=== PATIENT | male | born 1955 | race Caucasian/White ===

== ENCOUNTER 2017-06-21 15:15 | Inpatient (IN) ==
--- NOTE | 2017-06-21 15:39 | Emergency Department Note ---
Disposition Clinical Impression: Pneumonia Qualifiers: Pneumonia type: due to unspecified organism Laterality: right Lung location: unspecified part of lung Qualified Code(s): J18.9 - Pneumonia, unspecified organism Disposition: Admitted As Inpatient Condition: Fair Forms: ED Satisfaction Letter, Work/School Release Time of Disposition: 18:20 SOB HPI - General Chief Complaint: ED General Medical Stated Complaint: Abnormal chest xray,cough Time Seen by Provider: 06/21/17 15:19 Source: patient Mode of arrival: ambulatory Limitations: no limitations Nursing Notes Reviewed: Yes Vital Signs Reviewed: Yes - History of Present Illness 61-year-old who had the flu couple weeks ago then developed a cough and pneumonia was started on antibiotics comes in today with worsening symptoms. Chest x-ray done outside facility shows a large right sided lesion concerning for pneumonia versus mass is a cavitary lesion. In the differential would be tuberculosis although the onset would seem to be a post-influenza pneumonia. Pt Subjective Complaint: shortness of breath, cough Onset (ago): day(s) Context: recent illness Severity: moderate Consistency/Duration: constant Improves with: nothing Worsens with: exertion Known history of: COPD Associated symptoms: Reports: fever, cough Treatment prior to arrival: other (Antibiotics) Cough Frequency: Continuous - Related Data Home Medications Medication Instructions Recorded Confirmed Aspirin 81 mg PO DAILY 01/27/16 01/27/16 Calcium Carbonate [Calcium] 600 mg PO DAILY 01/27/16 01/27/16 Ferrous Sulfate 325 mg PO DAILY 01/27/16 01/27/16 Furosemide [Lasix] 20 mg PO DAILY 01/27/16 01/27/16 Insulin ASPART [NovoLOG] 6 - 8 unit SQ BID 01/27/16 01/27/16 Insulin Glargine,Hum.rec.anlog 66 unit SQ HS 01/27/16 01/27/16 [Lantus Solostar] Lisinopril [Zestril] 40 mg PO QPM 01/27/16 01/27/16 Spironolactone [Aldactone] 25 mg PO DAILY 01/27/16 01/27/16 metFORMIN [Glucophage] 850 mg PO TID 01/27/16 01/27/16 Previous Rx's Medication Instructions Recorded Clindamycin [Cleocin] 150 mg PO Q6HR #8 capsule 01/27/16 OxyCODONE Immed Rel [Roxicodone 5 5 - 10 mg PO Q8HR PRN #30 tablet 01/27/16 MG] Atorvastatin [Lipitor] 80 mg PO HS 30 Days tablet 01/30/16 Metoprolol XL (24 HR) Succ [Toprol 25 mg PO DAILY #30 tab.er.24h 01/30/16 Xl] Ticagrelor [Brilinta] 90 mg PO BID #60 tablet 01/30/16 Allergies Allergy/AdvReac Type Severity Reaction Status Date / Time Penicillins AdvReac Rash Verified 06/21/17 16:42 Constitutional: Denies: fever, chills, weakness, weight change Eyes: Denies: eye pain, eye discharge, vision change ENT ED: Denies: ear pain, throat pain, dental pain, hearing loss, epistaxis, congestion, dysphagia Cardiovascular: Denies: chest pain, palpitations, dyspnea on exertion, edema, syncope Respiratory: Reports: cough, dyspnea. Denies: wheezes, hemoptysis, stridor Gastrointestinal: Denies: abdominal pain, nausea, vomiting, diarrhea, constipation, hematemesis, melena, hematochezia Genitourinary: Denies: urgency, dysuria, frequency, hematuria Musculoskeletal: Denies: back pain, neck pain, arthralgia, myalgia Integumentary: Denies: rash, abrasion, lesions Neurological: Denies: headache, weakness, numbness, paresthesias, confusion, abnormal gait, vertigo Psychiatric: Denies: anxiety, depression, suicidal thoughts, homicidal thoughts , auditory hallucinations, visual hallucinations Endocrine: Denies: fatigue Hematological/Lymphatic: Denies: easy bleeding, easy bruising Allergic/Immunologic: Denies: facial swelling, urticaria Past Medical History - Past Medical History Medical history: Reports: CHF, diabetes, hyperlipidemia, hypertension, myocardial infarction, other Surgical history: Reports: angioplasty/stent, pacemaker/AICD Psychiatric history: Reports: no psych history - Social History Smoking Status: Former smoker Smokeless Tobacco Status: No Alcohol use: Reports: occasionally Drug use: Reports: none Physical Exam - General Limitations: no limitations General appearance: alert, in no apparent distress - Head Head exam: atraumatic, normocephalic, normal inspection - Eye Eye exam: Present: normal appearance, PERRL, EOMI - ENT ENT exam: normal exam, normal oropharynx, mucous membranes moist - Neck Neck exam: Present: normal inspection, full ROM, trachea midline - Chest Chest inspection: Present: normal inspection, symmetric chest wall rise - Respiratory Respiratory exam: Present: wheezes, prolonged expiratory phase (Occasional) - Cardiovascular Cardiovascular exam: Present: regular rate, normal rhythm, normal heart sounds - Abdominal Exam Abdominal exam: Present: soft, Non-Tender. Absent: tenderness, distention, guarding, rebound, rigidity - Extremities Exam Extremities exam: Present: normal inspection, full ROM. Absent: tenderness, pedal edema - Expanded Lower Extremity Exam Neurovascular/Tendon exam: Absent: motor deficit, sensory deficit, tendon deficit Gait: observed and normal - Back Exam Back exam: Present: normal inspection, full ROM. Absent: tenderness - Neurological Exam Neurological exam: Present: alert, oriented X3 - Psychiatric Psychiatric exam: Present: normal affect, normal mood - Skin Skin exam: Present: warm, dry, intact, normal color Course - Reevaluation(s) Reevaluation #1: 61-year-old male who comes in with a cough congestion. Patient had influenza couple weeks ago. Was diagnosed with a pneumonia and comes in with worsening symptoms. Had a chest x-ray that shows a cavitary pneumonia multifocal. Onset following influenza and findings of rapid development unlikely to be tuberculosis but we will keep him in a negative pressure room. Time: 18:19 - Consultations Consultation #1: Discussed with Dr. Cooper, admit. Time: 18:18 Vital Signs Temperature 98.2 F 06/21/17 15:23 Pulse Rate 99 06/21/17 15:23 Respiratory Rate 20 06/21/17 15:23 Blood Pressure 125/94 06/21/17 15:23 O2 Sat by Pulse Oximetry 99 06/21/17 15:23 Temperature 98.2 F 06/21/17 15:23 Pulse Rate 84 06/21/17 17:00 Respiratory Rate 20 06/21/17 17:00 Blood Pressure 115/72 06/21/17 17:00 O2 Sat by Pulse Oximetry 99 06/21/17 17:00 Oxygen Delivery Oxygen Delivery Room Air Shortness of Breath/Dyspnea - Lab Data Lab results reviewed: Yes I reviewed the patient's lab results. Result diagrams: 06/21/17 15:52 06/21/17 15:52 Lab Results 06/21/17 06/21/17 06/21/17 Range/Units 15:52 15:52 15:52 WBC 22.4 H (4.3-11.1) K/mcL RBC 3.91 L (4.19-5.50) M/mcL Hgb 10.6 L (12.9-16.9) g/dL Hct 32.2 L (37.5-50.1) % MCV 82.4 L (83.0-100.0) fL MCH 27.1 L (28.0-33.3) pg MCHC 32.9 (31.6-35.5) g/dL RDW 13.4 (11.5-14.5) % Plt Count 396 (140-400) K/mcL MPV 9.7 (9.4-12.4) fL Immature Gran % 1.1 (0-4) % Seg Neutrophils % 83.3 % Lymphocytes % 7.2 % Monocytes % 8.1 % Eosinophils % 0.2 % Basophils % 0.1 % Neutrophils # 18.6 H (1.6-8.9) K/mcL Lymphocytes # 1.6 (0.6-4.6) K/mcL Monocytes # 1.8 H (0.0-1.3) K/mcL Eosinophils # 0.1 (0.0-0.6) K/mcL Basophils # 0.0 (0.0-0.2) K/mcL Sodium 124 L (136-145) mEq/L Potassium 4.4 (3.5-5.1) mEq/L Chloride 94 L (98-107) mEq/L Carbon Dioxide 22 L (23-29) mEq/L BUN 23 (8-23) mg/dL Creatinine 1.03 (0.70-1.30) mg/dL Est GFR ( Amer) > 60 (> 60) Est GFR (Non-Af Amer) > 60 (> 60) BUN/Creatinine Ratio 22 (6-26) Glucose 591 H* (70-105) mg/dL Calculated Osmolality 289 (280-300) Lactic Acid 1.9 (0.5-2.2) mmol/L Calcium 8.4 L (8.6-10.3) mg/dL Troponin I (< 0.04) ng/mL 06/21/17 Range/Units 15:52 WBC (4.3-11.1) K/mcL RBC (4.19-5.50) M/mcL Hgb (12.9-16.9) g/dL Hct (37.5-50.1) % MCV (83.0-100.0) fL MCH (28.0-33.3) pg MCHC (31.6-35.5) g/dL RDW (11.5-14.5) % Plt Count (140-400) K/mcL MPV (9.4-12.4) fL Immature Gran % (0-4) % Seg Neutrophils % % Lymphocytes % % Monocytes % % Eosinophils % % Basophils % % Neutrophils # (1.6-8.9) K/mcL Lymphocytes # (0.6-4.6) K/mcL Monocytes # (0.0-1.3) K/mcL Eosinophils # (0.0-0.6) K/mcL Basophils # (0.0-0.2) K/mcL Sodium (136-145) mEq/L Potassium (3.5-5.1) mEq/L Chloride (98-107) mEq/L Carbon Dioxide (23-29) mEq/L BUN (8-23) mg/dL Creatinine (0.70-1.30) mg/dL Est GFR ( Amer) (> 60) Est GFR (Non-Af Amer) (> 60) BUN/Creatinine Ratio (6-26) Glucose (70-105) mg/dL Calculated Osmolality (280-300) Lactic Acid (0.5-2.2) mmol/L Calcium (8.6-10.3) mg/dL Troponin I < 0.03 (< 0.04) ng/mL - Radiology Data Radiology results reviewed: Yes I reviewed the patient's radiology results. Chest CTA 06/21/17 15:34 IMPRESSION: Large area of consolidation in the anterior aspect of the right upper lobe extending into the right middle lobe measuring 6.4 x 10.5 x 6.1 cm with internal air-fluid level and areas of cavitation. This most likely represents a large cavitary pneumonia especially given its rapid development/worsening since 06/08/[address] Underlying mass cannot be completely excluded and follow-up to resolution is recommended. Additional cavitary lesions measuring 16 x 11 mm and 13 x 12 mm in the left upper lobe also supporting a diagnosis of multifocal cavitary pneumonia. The left upper lobe lesions do not demonstrate air-fluid levels or significant consolidation although there is mild inflammatory ground-glass surrounding catheter adhesions. Trace pericardial effusion and right pleural effusion. Right mediastinal and subcarinal lymphadenopathy that may represent reactive lymphadenopathy. No evidence of pulmonary embolus. D/ / Nitin Powers MD / Nitin Powers MD Interpreting Provider: Nitin Powers MD
[2017-06-21 16:01] LABS: Basophils % 0.1 %; Eosinophils # 0.1 K/mcL (0.0-0.6); Eosinophils % 0.2 %; Hematocrit 32.2 % (37.5-50.1); Hemoglobin 10.6 g/dL (12.9-16.9); Immature Granulocytes % 1.1 % (0-4); Lymphocytes # 1.6 K/mcL (0.6-4.6); Lymphocytes % 7.2 %; Mean Corpuscular HGB Conc 32.9 g/dL (31.6-35.5); Mean Corpuscular Hemoglobin 27.1 pg (28.0-33.3); Mean Corpuscular Volume 82.4 fL (83.0-100.0); Mean Platelet Volume 9.7 fL (9.4-12.4); Monocytes # 1.8 K/mcL (0.0-1.3); Monocytes % 8.1 %; Neutrophils # 18.6 K/mcL (1.6-8.9); Platelet Count 396 K/mcL (140-400); Red Blood Count 3.91 M/mcL (4.19-5.50); Red Cell Distribution Width 13.4 % (11.5-14.5); Segmented Neutrophils % 83.3 %
[2017-06-21 16:23] LABS: BUN/Creatinine Ratio 22 (6-26); Blood Urea Nitrogen 23 mg/dL (8-23); Calcium 8.4 mg/dL (8.6-10.3); Carbon Dioxide 22 mEq/L (23-29); Chloride 94 mEq/L (98-107); Glucose 591 mg/dL (70-105); Osmolality,Calculated 289 (280-300); Potassium 4.4 mEq/L (3.5-5.1); Sodium 124 mEq/L (136-145); eGFR For African Americans > 60 (> 60); eGFR For Non-African Americans > 60 (> 60)
[2017-06-21] MEDS ORDERED: Insulin Human Regular 10 UNIT in 0.9 % Sodium Chloride 10 ML IV ONE (16:28)
[2017-06-21] MEDS ORDERED: Vancomycin 1,000 MG in D5% in Water 250 ML IVPB ONE (17:41)
[2017-06-21] MEDS ORDERED: Levofloxacin 750 MG/150 ML 750 MG/150 ML BAG IVPB ONE (17:41)
[2017-06-21] MEDS ORDERED: Naloxone 0.4 MG/ML INJ IVP PRN (19:54)
[2017-06-21] MEDS ORDERED: Dextrose Gel 15 GM/37.5 ML TUBE PO PRN ×2 (19:58)
[2017-06-21] MEDS ORDERED: *HR* Dextrose 50 % in Water (Syg) 50 ML SYRINGE IVP PRN (19:58)
[2017-06-21] MEDS ORDERED: D5% in Water 1,000 ML IVC PRN (19:58)
--- NOTE | 2017-06-21 20:05 | Internal Med History&Physical ---
Date of Encounter: 06/21/17 Time of Encounter: 19:00 Assessment and Plan (1) CAD (coronary artery disease) Current visit: Yes Status: Acute S/P stent, cont ASA, plavix, metoprolol, and statin. Currently no chest pain. Qualifiers: Coronary Disease-Associated Artery/Lesion type: [place] artery [place] vs. transplanted heart: [place] heart Associated angina: without angina Qualified Code(s): I25.10 - Atherosclerotic heart disease of [place] coronary artery without angina pectoris (2) Pneumonia Current visit: Yes Status: Acute Pt has cough with brown sputum, CXR and CT chest shows cavities. Consider cavitary pneumonia. Pt denies recent hospitalization in last 3 months. - Will treat pt with levaquin, add flagyl to cover anaerobic as the cavity presents. - Altough less likely, will check morning AFB smear x 3 to r/o TB - Repeat image study after treatment, consider pulmonary consult if pneumonia not improve on current treatment. Qualifiers: Pneumonia type: due to Pneumococcus Laterality: right Lung location: upper lobe of lung Qualified Code(s): J13 - Pneumonia due to Streptococcus pneumoniae (3) Congestive heart failure with left ventricular systolic dysfunction Current visit: No Status: Acute Appears euvolemic now. S/p AICD, cont BB and ACEI, cont lasix and spironolactone. (4) DVT prophylaxis Current visit: No Status: Acute Heaprin sc (5) Diabetes Current visit: No Status: Acute Poorly controlled DM with Glu over 500 in ER, insulin 10 units iv given in ER. Cont basal and sliding scale insulin and closely monitor Glu. 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 Place pt on fluid restriction as he has systolic CHF. Give low rate 0.9% NS for tatolly 1L at 50ml/hour now as pt just had CTA. Closely f/u sodium level. Internal Medicine - H&P: HPI Chief complaint: Cough Admitted From: Home Plans for Post Hospital Care: Home History of present illness: Mr. Hopper is a 61 year old male with Hx of DM, systolic CHF with LVEF 25%-30 % s/p AICD, CAD s/p stent, Hx of cardiac arrest during anesthesia, present to ER for cough for 10 days. Pt has Flu about 5 weeks ago and not feels good since then. In last 10 days, he has cough with small amount of brown sputum. Pt denies runny nose, sore throat, fever, increased SOB, or chest pain. Pt has no nausea or vomiting. Pt was treated with po abx but symptoms not improve. Pt denies night sweating. He lost about 10 Lbs over last 3 months but he said he has poor appetite and intake. In ER, CTA shows cavity in lung and suspect cavitary pneumonia. Pt was admitted for further management. Past Med Surg Social Fam HX - Past Medical History Medical history: CHF, diabetes, hyperlipidemia, hypertension, myocardial infarction, other Psychiatric history: no psych history - Past Surgical History Surgical History: angioplasty/stent, pacemaker/AICD - Social History Smoking Status: Former smoker Smokeless Tobacco Status: No Alcohol use: occasionally Drug use: none - Family History Mother History Unknown: Yes Internal Medicine - H&P: Meds Aspirin 81 mg PO DAILY 01/27/16 [History] Calcium Carbonate [Calcium] 600 mg PO DAILY 01/27/16 [History] Ferrous Sulfate 325 mg PO DAILY 01/27/16 [History] Furosemide [Lasix] 20 mg PO DAILY 01/27/16 [History] Insulin ASPART [NovoLOG] 6 - 8 unit SQ BID 01/27/16 [History] Insulin Glargine,Hum.rec.anlog [Lantus Solostar] 66 unit SQ HS 01/27/16 [History ] Lisinopril [Zestril] 40 mg PO QPM 01/27/16 [History] Spironolactone [Aldactone] 25 mg PO DAILY 01/27/16 [History] metFORMIN [Glucophage] 850 mg PO TID 01/27/16 [History] Atorvastatin [Lipitor] 80 mg PO HS 30 Days tablet 01/30/16 [Rx] Metoprolol XL (24 HR) Succ [Toprol Xl] 25 mg PO DAILY #30 tab.er.24h 01/30/16 [ Rx] Clopidogrel [Plavix] 75 mg PO DAILY 06/21/17 [History] Cyclobenzaprine [Flexeril] 10 mg PO PRN PRN 06/21/17 [History] HYDROcodone/Acet 5/325 mg [[place] 5-325 mg] 1 tab PO Q6H PRN 06/21/17 [History] 3 Allergy/AdvReac Type Severity Reaction Status Date / Time Penicillins AdvReac Rash Verified 06/21/17 16:42 All Systems PM: A 10-system review of systems was performed and is negative for pertinent findings except as documented above in the HPI. - Constitutional Vitals: Temp Pulse Resp BP Pulse Ox 98.2 F 84 18 112/71 99 06/21/17 15:23 06/21/17 19:43 06/21/17 19:43 06/21/17 19:43 06/21/17 19:43 General appearance: Present: A&O X 3, no acute distress, answers questions appropriately - Head Head exam: Present: atraumatic, normocephalic - Eye Eye exam: Present: PERRL, conjuntiva pink, sclera anicteric Pupils: Present: PERRL - Neck Neck exam general surgery: Present: supple, trachea midline. Absent: lymphadenopathy - Respiratory Respiratory exam: Present: CTAB. Absent: accessory muscle use, rales, rhonchi, wheezes - Cardiovascular Cardiovascular exam: Present: RRR, +S1, +S2. Absent: diastolic murmur, gallop, rubs, systolic murmur - GI/Abdominal GI/Abdominal exam: Present: normal bowel sounds, soft, no peritoneal signs. Absent: distended, tenderness - Extremities Exam Extremities exam: Present: warm, radial pulses palpable and symmetrical. Absent : calf tenderness, cyanotic, pedal edema - Neurological Exam Neurological exam: Present: CN II-XII intact, oriented X3, no focal deficits. Absent: pronater drift, facial droop, speech deficit - Skin Skin exam: Present: dry, intact Internal Med - H&P Results - Labs CBC & Chem 7: 06/21/17 15:52 06/21/17 15:52 - EKG Data -: EKG Interpreted by Myself EKG shows normal: sinus rhythm Rate: normal
[2017-06-21] MEDS ORDERED: 0.9 % Sodium Chloride 1,000 ML IVC SCH (20:15)
[2017-06-21 21:25] LABS: BUN/Creatinine Ratio 22 (6-26); Blood Urea Nitrogen 20 mg/dL (8-23); Carbon Dioxide 25 mEq/L (23-29); Chloride 96 mEq/L (98-107); Glucose 365 mg/dL (70-105); Osmolality,Calculated 283 (280-300); Sodium 128 mEq/L (136-145); eGFR For African Americans > 60 (> 60); eGFR For Non-African Americans > 60 (> 60)
[2017-06-21] MEDS: MetroNIDAZOLE 500 MG/100 ML 500 MG/100 ML BAG IVPB SCH (23:02)
[2017-06-21] MEDS: Insulin DETEMIR 100 UNIT/ML X5UNITS SQ SCH (23:03)
[2017-06-21] MEDS: Insulin LISPRO 300 UNITS/3 ML VIAL SQ SCH (23:04)
[2017-06-22 03:12] LABS: Basophils % 0.2 %; Eosinophils # 0.1 K/mcL (0.0-0.6); Eosinophils % 0.6 %; Hemoglobin 10.1 g/dL (12.9-16.9); Immature Granulocytes % 0.9 % (0-4); Lymphocytes # 1.6 K/mcL (0.6-4.6); Lymphocytes % 8.4 %; Mean Corpuscular HGB Conc 33.7 g/dL (31.6-35.5); Mean Corpuscular Hemoglobin 27.2 pg (28.0-33.3); Mean Corpuscular Volume 80.6 fL (83.0-100.0); Mean Platelet Volume 9.3 fL (9.4-12.4); Monocytes # 1.5 K/mcL (0.0-1.3); Monocytes % 7.7 %; Neutrophils # 15.6 K/mcL (1.6-8.9); Platelet Count 384 K/mcL (140-400); Red Blood Count 3.72 M/mcL (4.19-5.50); Red Cell Distribution Width 13.3 % (11.5-14.5); Segmented Neutrophils % 82.2 %
[2017-06-22 03:38] LABS: BUN/Creatinine Ratio 21 (6-26); Blood Urea Nitrogen 18 mg/dL (8-23); Calcium 8.1 mg/dL (8.6-10.3); Carbon Dioxide 24 mEq/L (23-29); Chloride 99 mEq/L (98-107); Glucose 265 mg/dL (70-105); Osmolality,Calculated 281 (280-300); Sodium 130 mEq/L (136-145); eGFR For African Americans > 60 (> 60); eGFR For Non-African Americans > 60 (> 60)
[2017-06-22] MEDS: *HR* Heparin 5,000 UNIT/ML VIAL SQ SCH ×2 (05:56→17:09)
[2017-06-22] MEDS: MetroNIDAZOLE 500 MG/100 ML 500 MG/100 ML BAG IVPB SCH ×2 (08:28→15:28)
[2017-06-22] MEDS: Metoprolol XL (24 HR) Succ 25 MG TAB.ER.24H PO SCH (08:29)
[2017-06-22] MEDS: Spironolactone 25 MG TABLET PO SCH (08:29)
[2017-06-22] MEDS: Aspirin 81 MG TAB.CHEW PO SCH (08:29)
[2017-06-22] MEDS: Furosemide 20 MG TABLET PO SCH (08:29)
[2017-06-22] MEDS: Insulin LISPRO 300 UNITS/3 ML VIAL SQ SCH ×4 (08:33→21:23)
--- NOTE | 2017-06-22 08:43 | Internal Med Progress Note ---
Date of Encounter: 06/22/17 Time of Encounter: 08:54 - Assessment and plan (1) Pneumonia Current Visit: Yes Status: Acute Assessment and plan: presented with cough for the last 10 days. Was recently diagnosed with the flu approx 5 weeks ago. Chest CTA with large right upper lobe cavitary pneumonia that has rapidly developed/worsened since 06/08/17 as well as large left upper lobe multifocal cavitary pneumonia however underlying mass cannot be excluded. No recent weight loss, no night sweats, no known exposure to TB. WBC 22K, lactic acid normal. Afebrile. No tachycardia or hypotension. Continue Levaquin, Flagyl. Urinary antigens, respiratory PCR, sputum culture, AFB pending. Pulmonology consulted Qualifiers: Pneumonia type: due to unspecified organism Laterality: right Lung location: upper lobe of lung Qualified Code(s): J18.1 - Lobar pneumonia, unspecified organism (2) CAD (coronary artery disease) Current Visit: Yes Status: Acute Assessment and plan: hx PCI with stents. Asymptomatic, denied chest pain. Continue home ASA, Plavix , BB, statin. Qualifiers: Coronary Disease-Associated Artery/Lesion type: [place] artery [place] vs. transplanted heart: [place] heart Associated angina: without angina Qualified Code(s): I25.10 - Atherosclerotic heart disease of [place] coronary artery without angina pectoris (3) Congestive heart failure with left ventricular systolic dysfunction Current Visit: No Status: Acute Assessment and plan: has AICD. Appears euvolemic. Continue home diuretics, BB, SHERYL (4) Diabetes Current Visit: No Status: Acute Assessment and plan: per hx. Blood sugar over 500 upon arrival. Received IV insulin in the ER. Blood sugars variable but overall improved. Continue SSI. 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 Corrected sodium 136. Neurologically intact. Repeat sodium improving. (6) DVT prophylaxis Current Visit: No Status: Acute Assessment and plan: heparin - Subjective Interval history: Seen and examined at bedside. Patient is new to me. Information obtained from chart review and patient report. Patient says he feels okay, denies chest pain or shortness of breath. He does report a nonproductive cough. Denies risk factors for TB; no recent weight loss, no night sweats, no known exposures, no exposure to crowded/over populated areas. - Constitutional Vitals: Temp Pulse Resp BP Pulse Ox 98.4 F 77 16 112/72 97 06/22/17 07:33 06/22/17 07:33 06/22/17 07:33 06/22/17 07:33 06/22/17 07:33 General appearance: Present: A&O X 3, no acute distress, answers questions appropriately - Head Head exam: Present: atraumatic, normocephalic - Eye Eye exam: Present: PERRL, conjuntiva pink, sclera anicteric Pupils: Present: PERRL - Neck Neck exam general surgery: Present: supple, trachea midline. Absent: lymphadenopathy - Respiratory Respiratory exam: Present: CTAB. Absent: accessory muscle use, rales, rhonchi, wheezes - Cardiovascular Cardiovascular exam: Present: RRR, +S1, +S2. Absent: diastolic murmur, gallop, rubs, systolic murmur - GI/Abdominal GI/Abdominal exam: Present: normal bowel sounds, soft, no peritoneal signs. Absent: distended, tenderness - Extremities Exam Extremities exam: Present: warm, radial pulses palpable and symmetrical. Absent : calf tenderness, cyanotic, pedal edema - Neurological Exam Neurological exam: Present: CN II-XII intact, oriented X3, no focal deficits. Absent: pronater drift, facial droop, speech deficit - Skin Skin exam: Present: dry, intact Internal Medicine: Result - Labs CBC & Chem 7: 06/22/17 03:06 06/22/17 03:06 Labs: Short CBC 06/22/17 Range/Units 03:06 WBC 18.9 H (4.3-11.1) K/mcL Hgb 10.1 L (12.9-16.9) g/dL Hct 30.0 L (37.5-50.1) % Plt Count 384 (140-400) K/mcL Neutrophils # 15.6 H (1.6-8.9) K/mcL BMP 06/21/17 06/22/17 20:44 03:06 Sodium 128 L 130 L Potassium 4.0 4.0 Chloride 96 L 99 Carbon Dioxide 25 24 BUN 20 18 Creatinine 0.89 0.84 Glucose 365 H 265 H Calcium 8.0 L 8.1 L Consult Discharge Plan - Plan Referrals: Ellen Ceron, TRIALS MANAGER [Primary Care Provider] -
[2017-06-22 09:19] LABS: BUN/Creatinine Ratio 18 (6-26); Blood Urea Nitrogen 15 mg/dL (8-23); Calcium 8.1 mg/dL (8.6-10.3); Carbon Dioxide 25 mEq/L (23-29); Chloride 100 mEq/L (98-107); Glucose 128 mg/dL (70-105); Osmolality,Calculated 278 (280-300); Sodium 133 mEq/L (136-145); eGFR For African Americans > 60 (> 60); eGFR For Non-African Americans > 60 (> 60)
--- NOTE | 2017-06-22 09:34 | Pulmonology Consult Note ---
Date of Encounter: 06/22/17 Time of Encounter: 09:34 Assessment and Plan (1) Cavitary lesion of lung Current Visit: Yes Status: Acute In conclusion this is a 61-year-old gentleman with a past medical history of her failure with reduced ejection fraction along with diabetes mellitus who presented for persistent cough for at least the last month that failed outpatient antimicrobial I reviewed his chest CT which is impressive for right upper lobe large cavitary lesion with air-fluid level I suspect this is infectious in nature he has some reactive lymphadenopathy he also has a small cavitary lesion in the left upper lobe. Per record he recently was diagnosed with the "flu" about but I do not see any clear evidence that he was actually diagnosed with influenza however recent viral infection could put him at risk for bacterial coinfection including MRSA. I reviewed his chest x-ray from 06/08 compared to admission chest x-ray and there is a very impressive difference suggesting that this is better rapidly developing process which favors infection much less likely of the neoplasm. Current antimicrobial coverage is Levaquin and Flagyl which would appear to be reasonable initial coverage for anaerobic and common before every meal acquired pathogens however given how rapidly this is been progressing do not think we could not fully exclude the possibility of MRSA and until cultures indicate otherwise it is prudent to start coverage for MRSA with either vancomycin or linezolid as reasonable options. Additionally infectious disease consultation may be necessary based upon clinical course. Clearly blood cultures should be obtained at least 2 sets along with sputum culture which has been ordered and pending at this time. It is unclear to me at this time if failure of antimicrobials because of a unusual organism or if the duration of treatment was insufficient I favor the latter. Plan is for bronchoscopy tomorrow with BAL. A bronchoscopy is recommended. The procedure , risks, benefits, complications, and expected outcomes have been reviewed. Benefits of diagnosis, as well as risks to include bleeding, infection , pneumothorax which may require surgical intervention, and in a small population. The patient is aware that sometimes test is nondiagnostic. Discussed with patient and agrees to proceed. I also reinforced the patient is on Plavix and risk of bleeding will be slightly increased. He is currently on airborne isolation for presumed tuberculosis or at least rule this out I think his risk factors are so low and this process has developed so rapidly that the probability of Mycobacterium tuberculosis is extremely low. Patient's heart failure appears quiescent I will defer to management of this to the hospitalist service (2) Congestive heart failure with left ventricular systolic dysfunction Current Visit: No Status: Acute History of Present Illness Consult date: 06/22/17 Requesting physician: Toney Phillips Reason for consult: abnormal CXR/CT Chief complaint: Cough History of present illness: This is a pleasant 61-year-old gentleman with a past medical history of heart failure with reduced ejection fraction EF of 20-30% status post AICD placement also has a history of asthma and rib moat tobacco abuse smoked for about 10 years I have a pack a day in remission since his early 30s. He has complained of a cough that has been nonproductive for the last 4-6 weeks he underwent a course of doxycycline from his PCP and when that did not resolve his symptoms of chest x-ray was ordered which is notable for a right hilar infiltrate at which point he was started on Levaquin but symptoms did not improve and he presented to the emergency department. In the emergency department he had a leukocytosis but otherwise vitals were stable a CT of the chest was performed which was notable for right upper lobe cavitary lesion with surrounding infiltrate lung with a much smaller cavitary lesion in the left upper lobe He has been treated with Levaquin and Flagyl for the last 48 hours pulmonary was consulted for further evaluation of this findings. Patient denies hemoptysis night sweats fevers or chills but he has noticed weight loss for the last few months so that now his closed not fit as well as they used to he also has endorsed anorexia during this time. He denies sick contacts he is not on any immunosuppressive medications no significant hobbies he does not keep birds or any other exotic animals [place] no history of rheumatoid arthritis or other rheumatological condition that I can gather no exposure to persons with tuberculosis and he himself has never been infected with tuberculosis to his knowledge he has never been in residential and he does not use intravenous drugs and rarely drinks. Past Med Surg Social Fam HX - Past Medical History Medical history: CHF, diabetes, hyperlipidemia, hypertension, myocardial infarction, other Psychiatric history: no psych history - Past Surgical History Surgical History: angioplasty/stent, pacemaker/AICD - Social History Smoking Status: Former smoker Smokeless Tobacco Status: No Alcohol use: occasionally Drug use: none - Family History Mother History Unknown: Yes Living Status: Age at : 71 Cause of : heart failure Hx Family Cardiac Disorders: Yes Medications and Allergies Aspirin 81 mg PO DAILY 01/27/16 [History] Calcium Carbonate [Calcium] 600 mg PO DAILY 01/27/16 [History] Ferrous Sulfate 325 mg PO DAILY 01/27/16 [History] Furosemide [Lasix] 20 mg PO DAILY 01/27/16 [History] Insulin ASPART [NovoLOG] 0 unit SQ BID 01/27/16 [History] Insulin Glargine,Hum.rec.anlog [Lantus Solostar] 66 unit SQ HS 01/27/16 [History ] Lisinopril [Zestril] 40 mg PO QPM 01/27/16 [History] Spironolactone [Aldactone] 25 mg PO DAILY 01/27/16 [History] metFORMIN [Glucophage] 850 mg PO TID 01/27/16 [History] Atorvastatin [Lipitor] 80 mg PO HS 30 Days tablet 01/30/16 [Rx] Metoprolol XL (24 HR) Succ [Toprol Xl] 25 mg PO DAILY #30 tab.er.24h 01/30/16 [ Rx] Clopidogrel [Plavix] 75 mg PO DAILY 06/21/17 [History] Cyclobenzaprine [Flexeril] 10 mg PO HS PRN 06/21/17 [History] HYDROcodone/Acet 5/325 mg [[place] 5-325 mg] 1 tab PO Q12H PRN 06/21/17 [History] 3 Allergy/AdvReac Type Severity Reaction Status Date / Time Penicillins AdvReac Rash Verified 06/21/17 16:42 All Systems: A 10-system review of systems was performed and is negative for pertinent findings except as documented above in the HPI. Physical Examination Vital Signs: Vital Signs, Last 4 Hours Temp Pulse Resp BP Pulse Ox 06/22/17 07:33 98.4 F 77 16 112/72 97 General appearance: no acute distress Eyes: nonicteric ENT: oropharynx moist, other (Edentulous but no oral lesions noted) Neck: supple, no lymphadenopathy, no JVD Effort: normal Auscultation: left: clear, right: diminished breath sounds (Midlung zone) Cardiovascular: regular rate and rhythm Gastrointestinal: normoactive bowel sounds, soft, non-tender Integumentary: normal Extremities: no cyanosis, no edema, no clubbing, no ischemia or petechiae Musculoskeletal: no deformities normal mental status, non-focal exam, pupils equal and round mood appropriate Results - Laboratory Findings CBC and BMP: 06/22/17 03:06 06/22/17 08:39 Abnormal lab findings: Abnormal lab results WBC 18.9 K/mcL (4.3-11.1) H 06/22/17 03:06 RBC 3.72 M/mcL (4.19-5.50) L 06/22/17 03:06 Hgb 10.1 g/dL (12.9-16.9) L 06/22/17 03:06 Hct 30.0 % (37.5-50.1) L 06/22/17 03:06 MCV 80.6 fL (83.0-100.0) L 06/22/17 03:06 MCH 27.2 pg (28.0-33.3) L 06/22/17 03:06 MPV 9.3 fL (9.4-12.4) L 06/22/17 03:06 Neutrophils # 15.6 K/mcL (1.6-8.9) H 06/22/17 03:06 Monocytes # 1.5 K/mcL (0.0-1.3) H 06/22/17 03:06 Sodium 133 mEq/L (136-145) L 06/22/17 08:39 Glucose 128 mg/dL (70-105) H 06/22/17 08:39 Calculated Osmolality 278 (280-300) L 06/22/17 08:39 Calcium 8.1 mg/dL (8.6-10.3) L 06/22/17 08:39 Magnesium 1.3 mg/dL (1.6-2.6) L 06/22/17 03:06 - Diagnostic Findings Chest x-ray: report reviewed, image reviewed CT scan - chest: report reviewed, image reviewed - Clinical Findings Intake & Output: Intake & Output 06/21/17 06/22/17 06/22/17 23:59 07:59 15:59 Intake Total 100 / 100 Balance 100 / 100 Weight 67.812 kg 67.812 kg Consult Discharge Plan - Plan Referrals: Ellen Ceron, EMERGENCY PLANNER [Primary Care Provider] -
[2017-06-22 09:56] LABS: Adenovirus Not Detected (Not Detect); Bordetella Pertussis Not Detected (Not Detect); Chlamydophila pneumoniae Not Detected (Not Detect); Coronavirus 229E Not Detected (Not Detect); Coronavirus HKU1 Not Detected (Not Detect); Coronavirus NL63 Not Detected (Not Detect); Coronavirus OC43 Not Detected (Not Detect); Human Metapneumovirus Not Detected (Not Detect); Human Rhinovirus/Enterovirus Not Detected (Not Detect); Influenza A Subtype 2009 H1 Not Detected (Not Detect); Influenza A Untypeable Not Detected (Not Detect); Influenza B Not Detected (Not Detect); Mycoplasma pneumoniae Not Detected (Not Detect); Parainfluenza Virus 1 Not Detected (Not Detect); Parainfluenza Virus 2 Not Detected (Not Detect); Parainfluenza Virus 3 Not Detected (Not Detect); Parainfluenza Virus 4 Not Detected (Not Detect); Respiratory Syncytial Virus Not Detected (Not Detect)
[2017-06-22 10:00] LABS: Hemoglobin A1C 11.7 %
[2017-06-22] MEDS: Lisinopril 20 MG TABLET PO SCH (17:10)
[2017-06-22] MEDS: Levofloxacin 750 MG/150 ML 750 MG/150 ML BAG IVPB SCH (18:40)
--- NOTE | 2017-06-22 19:16 | Anesthesia Evaluation PreOp ---
Date of Encounter: 06/22/17 Time of Encounter: 19:12 - Past History Planned Operation: Bronchoscopy Cardiac History: [place] (2001), HTN, Hyperlipidemia, Cardiac Stent (stent x 2), Pacemaker/ICD (AICD) Pulmonary History: Former smoker (quit 30 years ago, smoked for 10 years), COPD , Other (TB precautions) MANAGER PROGRAM MANAGEMENT History: Denies Any Significant HX Other Medical History: Diabetes Type II Anesthesia History: Past Anesthesia, Problems (01/27/2016--PEA during right shoulder surgery) Alcohol Use: occasionally Drug use: none Medications and Allergies Aspirin 81 mg PO DAILY 01/27/16 [History] Calcium Carbonate [Calcium] 600 mg PO DAILY 01/27/16 [History] Ferrous Sulfate 325 mg PO DAILY 01/27/16 [History] Furosemide [Lasix] 20 mg PO DAILY 01/27/16 [History] Insulin ASPART [NovoLOG] 0 unit SQ BID 01/27/16 [History] Insulin Glargine,Hum.rec.anlog [Lantus Solostar] 66 unit SQ HS 01/27/16 [History ] Lisinopril [Zestril] 40 mg PO QPM 01/27/16 [History] Spironolactone [Aldactone] 25 mg PO DAILY 01/27/16 [History] metFORMIN [Glucophage] 850 mg PO TID 01/27/16 [History] Atorvastatin [Lipitor] 80 mg PO HS 30 Days tablet 01/30/16 [Rx] Metoprolol XL (24 HR) Succ [Toprol Xl] 25 mg PO DAILY #30 tab.er.24h 01/30/16 [ Rx] Clopidogrel [Plavix] 75 mg PO DAILY 06/21/17 [History] Cyclobenzaprine [Flexeril] 10 mg PO HS PRN 06/21/17 [History] HYDROcodone/Acet 5/325 mg [[place] 5-325 mg] 1 tab PO Q12H PRN 06/21/17 [History] 3 Allergy/AdvReac Type Severity Reaction Status Date / Time Penicillins AdvReac Rash Verified 06/21/17 16:42 - Meds/Allergy Pre-op Review Medications Reviewed: Yes Allergies Reviewed: Yes Beta Blockers on Current Med List: Yes If Beta Blockers taken, Date/Time (Last Dose taken): 06/22/2017 at 0829 Anesthesia Results - Labs 06/22/17 03:06 06/22/17 08:39 - Imaging EKG: report reviewed (01/27/2016 SINUS TACHYCARDIA MARKED LEFT AXIS DEVIATION INTRAVENTRICULAR CONDUCTION DELAY POOR R WAVE PROGRESSION) Additional studies: 06/22/2016 Limited Echo Impressions: LVEF 25-30%. Moderately dilated left ventricle. Severe global and segmental left ventricular systolic dysfunction. Left Ventricular Wall Motion: Rest Echo Findings The apical inferior, mid inferior, basal inferior, apical anterior, mid anterior, basal anterior, basal inferior septal, apical lateral, mid anterior lateral, basal anterior lateral, mid inferior lateral, basal anterior septal and basal inferior lateral avendano were hypokinetic. The apex, apical septal, mid inferior septal and mid anterior septal avendano were akinetic. 01/28/2016 LEFT HEART CATH Stent w/ PTCA Single Major Vessel Indications: Cardiac arrest Impressions: There is severe one vessel coronary artery disease. The left ventricle is enlarged and has severely abnormal contractility EF 10% Patient had successful PTCA/Drug-Eluting Stent placement in the mid LAD. 01/27/2016 Echo Impressions: LVEF 10-15%. Left ventricle is severely dilated. No LV thrombus. Definity was used. RV is normal in size with mild to moderate reduction in function. Moderate mitral regurgitation. Mild-moderate tricuspid regurgitation. Mild pulmonic regurgitation. At least moderate pulmonary hypertension by TR gradient, 52 mmHg. IVC is not visualized. Trivial posterior pericardial effusion. A device lead is visualized in the right atrium and right ventricle. Anesthesia Exam Vital Signs/O2 Sat/Glucose, Most Recent Temp Pulse Resp BP Pulse Ox 98.8 F 95 14 113/70 97 06/22/17 18:47 06/22/17 18:47 06/22/17 18:47 06/22/17 18:47 06/22/17 18:47 Blood Glucose* 125 Height: 5'11''/1.8 m Weight: 149 lbs/67.8 kg NPO (# of Hours): 8 Pain Scale: 0 Pain Scale Used: Numeric (1 - 10) - HEENT Pupil (Motor): EOMI Mallampati: II Teeth: Edentulous Oral Opening: Greater than 3 - MANAGER PROGRAM MANAGEMENT LOC: Oriented MANAGER PROGRAM MANAGEMENT Motor: Normal LUE, Normal RLE, Normal LLE, Normal Face, Deficit RUE MANAGER PROGRAM MANAGEMENT Sensory: Normal: RUE, LUE, RLE, LLE, Face - Cardiac Rhythm: Regular Murmur: None - Pulmonary Breath Sounds: bilateral Clear Respiratory Effort: Symmetrical Anesthesia Assess/Plan ASA Score: 4 Modified Sunil Scale for Level of Consciousness: Cooperative, oriented, and tranquil Anesthetic Plan: MAC Monitoring Plan: Standard Monitors Recovery Plan: PACU
--- NOTE | 2017-06-22 19:42 | Electrocardiograph Report ---
[place] [id number] Test Date: 2017-06-21 Pat Name: Addy Hopper Department: 102 Room: 3B11 Gender: M [employer] Psychology Professor: [facility] : 1955 Requested By: Lamberto Ford Order Number: [id number] Reading MD: Gregorio Kwon MD Measurements Intervals [place] Rate: 92 P: 33 [place]: 174 QRS: -54 QRSD: 121 T: 87 QT: 352 QTc: 402 Interpretive Statements SINUS RHYTHM LEFT ANTERIOR FASCICULAR BLOCK Poor R wave progression Electronically Signed On 06-22-2017 19:40:52 EST by Gregorio Kwon MD
[2017-06-22] MEDS: Insulin DETEMIR 100 UNIT/ML X5UNITS SQ SCH (21:11)
[2017-06-23] MEDS: MetroNIDAZOLE 500 MG/100 ML 500 MG/100 ML BAG IVPB SCH ×2 (00:02→07:44)
[2017-06-23 05:25] LABS: Hematocrit 29.5 % (37.5-50.1); Hemoglobin 9.8 g/dL (12.9-16.9); Mean Corpuscular HGB Conc 33.2 g/dL (31.6-35.5); Mean Corpuscular Hemoglobin 27.2 pg (28.0-33.3); Mean Corpuscular Volume 81.9 fL (83.0-100.0); Mean Platelet Volume 9.4 fL (9.4-12.4); Platelet Count 386 K/mcL (140-400); Red Cell Distribution Width 13.2 % (11.5-14.5)
[2017-06-23] MEDS: *HR* Heparin 5,000 UNIT/ML VIAL SQ SCH ×2 (05:33→16:41)
[2017-06-23] MEDS: Furosemide 20 MG TABLET PO SCH (07:43)
[2017-06-23] MEDS: Spironolactone 25 MG TABLET PO SCH (07:43)
[2017-06-23] MEDS: Aspirin 81 MG TAB.CHEW PO SCH (07:43)
[2017-06-23] MEDS: Insulin LISPRO 300 UNITS/3 ML VIAL SQ SCH ×4 (07:43→20:45)
[2017-06-23] MEDS: Metoprolol XL (24 HR) Succ 25 MG TAB.ER.24H PO SCH (07:44)
--- NOTE | 2017-06-23 07:54 | Pre-Sedation Evaluation ---
Pre-sedation evaluation - Pre-sedation checklist Date of procedure: 06/23/17 Procedure: Bronchoscopy Recent Vitals: Last Vital Signs Temp 98.5 F 06/23/17 07:04 Pulse 97 06/23/17 07:04 Resp 18 06/23/17 07:04 BP 105/63 06/23/17 07:04 Pulse Ox 98 06/23/17 07:04 H&P (including ROS) documented in medical record: Yes Previous reaction to sedatives/anesthetics: No Dietary Status: NPO after Midnight Airway Assessment: Patient can open mouth completely, TMJ function normal Dentition: dentures removed Possible difficult airway: No ASA Classification *see protocol: CLASS III-Severe systemic disease Plan of Care: Pt appropriate candidate for procedure/moderate/conscious sedation , Risks/benefits of procedure/sedation discussed w/ patient/family
--- NOTE | 2017-06-23 12:13 | Infectious Disease Consult ---
Date of Encounter: 06/23/17 Time of Encounter: 12:12 Assessment and Plan (1) Sepsis Status: Acute Assessment and plan: The patient had two SIRS criteria on admission. Likely secondary to cavitary lung lesion. Improved. WBC trending down. Tachycardia has resolved. Blood cultures drawn 06/21/17 are NGTD 2/2 sets. Qualifiers: Sepsis type: sepsis due to unspecified organism Qualified Code(s): A41.9 - Sepsis, unspecified organism (2) Cavitary lesion of lung Status: Acute Assessment and plan: Etiology unclear. Per pulmonology, unlikely malignancy. Given the rapid progression, concern for bacterial infection (MSSA/MRSA, Klebsiella, PSEA, or anaerobes) rather than atypical. The patient has no complaints of dental issues or aspiration. Low index of suspicion for TB given the lack of symptoms or potential exposure. CXR completed 06/21/17 showed increased mass-like opacity in the anterior right upper lobe with an internal air-fluid level concerning for cavitary pneumonia vs. abscess vs. malignancy. CTA of the chest was negative for PE, but did show a large consolidation in the right upper lobe with air fluid level and cavitation with additional lesions in the left lung. S. pneumo and legionella UAT negative. Sputum culture gram stain shows moderate GPC and few GNR. Final ID and sensitivities are pending. Pulmonology consulted and following. Planning for bronch later today. Please send specimen for aerobic, anaerobic, fungal and AFB cultures. Send AFB cultures x 2 more if the patient is able to provide specimen. Place PPD. If negative in 48 hours, can discontinue airborne isolation. Check Quantiferon. Check HIV status. Discontinue Flagyl as it does not have great anaerobic coverage for dental issues if that is the source. Start Clindamycin 600mg IV Q8H. Will cover anaerobes and MRSA. Continue Levaquin 750mg IV daily. Start probiotics. Await cultures. Duration of treatment depends on the clinical picture. Monitor renal function and dose-adjust antibiotics. (3) Cough Status: Acute Assessment and plan: Likely secondary to cavitary lung lesion. Supportive care. Management per the primary and pulmonology teams. (4) CAD (coronary artery disease) Status: Acute Assessment and plan: Status post cardiac stent placement x 2. Qualifiers: Coronary Disease-Associated Artery/Lesion type: [place] artery [place] vs. transplanted heart: [place] heart Associated angina: without angina Qualified Code(s): I25.10 - Atherosclerotic heart disease of [place] coronary artery without angina pectoris (5) Diabetes Status: Acute Assessment and plan: Recommend aggressive glucose monitoring and control. Qualifiers: Diabetes mellitus type: type 2 Diabetes mellitus complication status: without complication Diabetes mellitus termite exterminator helper insulin use: with termite exterminator helper use Qualified Code(s): E11.9 - Type 2 diabetes mellitus without complications ; Z79.4 - correction (current) use of insulin; Z79.4 - intermediate frame tender (current) use of insulin; Z79.4 - correction (current) use of insulin; Z79.4 - correction ( current) use of insulin (6) ICD (implantable cardioverter-defibrillator) in place Status: Acute Infectious Disease HPI - Data of Consult Patient: new to practice Consult date: 06/23/17 Requesting Physician: Gerri Mariscal MD Primary Care Provider: Ellen Ceron CNP - Consult Narrative Reason for consult: Cavitary Lung Lesion History of present illness: Mr. Hopper is a 61 year old male past medical history of CHF status post pacer/AICD placement, diabetes, hyperlipidemia, hypertension, and ID. The patient was admitted to the hospital [facility] for cavitary lung lesion. We are consulted for night for antibiotic recommendations for cavitary lung lesion. Briefly, the patient's a 61-year-old male with past medical history as stated above. The patient was evaluated by his PCP about 2 weeks ago for a cough and diagnosed with bronchitis. He was started on PO doxycycline and Tessalon Pearls , but did not get any better. He had a CXR on June 08 that showed increased density in the right greater than left perihilar regions concerning for infiltrate. The patient tells me he was switched to oral Levaquin, but I cannot find any documentation of this in his medical record. Despite the antibiotics, the patient continued to have cough and had a repeat chest x-ray on June 21 that showed increase in the masslike opacity in the anterior right upper lobe with an internal air fluid level concerning for cavitary pneumonia versus abscess versus malignancy. He was instructed by his PCP to come to the emergency department for evaluation. Upon arrival, the patient was afebrile, he was tachycardic and her neutrophil leukocytosis. Blood cultures were obtained 2 sets. He also had a CTA of the chest that showed a large consolidation in the right upper lobe with air fluid levels and cavitation as well as additional cavitary lesions in the left upper lobe. He was started empirically on IV Levaquin and IV Flagyl and admitted to the hospital for further evaluation. Admission, the patient is been evaluated by pulmonology who recommended a bronchoscopy which is scheduled to happen later today. He had a sputum culture that was positive for moderate gram-positive cocci and few gram-negative rods, but the final ID and sensitivities are pending. He did have one AFB smear that is currently negative. Respiratory infectious panel was negative. Strep pneumococcal and Legionella antigens were negative as well. Since admission, the patient's white blood cell count has improved. He has remained afebrile and hemodynamically stable. We've been asked to evaluate and make further recommendations. During my exam today, the patient endorses a history as stated above.He denies fevers or chills or rigors. He denies any headache or neck pain. He denies any congestion, earache, or sore throat. He states the cough has been mostly nonproductive. He denies any pain in his chest or shortness of breath. He denies any hemoptysis, night sweats, or known weight loss although he says there was a twenty pound discrepancy between when he went to the doctor last and the bed scale here in the hospital. He denies any nausea, vomiting, diarrhea , constipation. He does report that he has not eaten much since the cough started because nothing tastes good. He denies abdominal pain or neck complaints. He denies any dental issues. Denies oral thrush or skin lesions. He does have a history of psoriasis but he has not had any medications for this. A she lives at home with his and all. He denies any recent travel. He denies having any other animals. He denies any tobacco, alcohol, or illicit drug use. He denies any infectious history such as tuberculosis, HIV, hepatitis. He denies any known exposure to tuberculosis. States he has never been incarcerated or in the . He is unemployed and does not work outside the home. CC: Gerri Mariscal MD Past Med Surg Social Fam HX - Past Medical History Attestation: Yes The following information was validated with the patient. Source: patient, old records reviewed, nursing notes reviewed Medical history: CHF, diabetes (Insulin and oral antihyperglycemics), hyperlipidemia, hypertension, myocardial infarction (s/p cardiac stent placement ), other Psychiatric history: no psych history - Past Surgical History Surgical History: angioplasty/stent, pacemaker/AICD - Social History Smoking Status: Former smoker Smokeless Tobacco Status: No Alcohol use: occasionally Drug use: none - Family History Mother History Unknown: Yes Living Status: Age at : 71 Cause of : heart failure Hx Family Cardiac Disorders: Yes Infectious Disease-CN:Meds Aspirin 81 mg PO DAILY 01/27/16 [History] Calcium Carbonate [Calcium] 600 mg PO DAILY 01/27/16 [History] Ferrous Sulfate 325 mg PO DAILY 01/27/16 [History] Furosemide [Lasix] 20 mg PO DAILY 01/27/16 [History] Insulin ASPART [NovoLOG] 0 unit SQ BID 01/27/16 [History] Insulin Glargine,Hum.rec.anlog [Lantus Solostar] 66 unit SQ HS 01/27/16 [History ] Lisinopril [Zestril] 40 mg PO QPM 01/27/16 [History] Spironolactone [Aldactone] 25 mg PO DAILY 01/27/16 [History] metFORMIN [Glucophage] 850 mg PO TID 01/27/16 [History] Atorvastatin [Lipitor] 80 mg PO HS 30 Days tablet 01/30/16 [Rx] Metoprolol XL (24 HR) Succ [Toprol Xl] 25 mg PO DAILY #30 tab.er.24h 01/30/16 [ Rx] Clopidogrel [Plavix] 75 mg PO DAILY 06/21/17 [History] Cyclobenzaprine [Flexeril] 10 mg PO HS PRN 06/21/17 [History] HYDROcodone/Acet 5/325 mg [[place] 5-325 mg] 1 tab PO Q12H PRN 06/21/17 [History] 3 Allergy/AdvReac Type Severity Reaction Status Date / Time Penicillins AdvReac Rash Verified 06/21/17 16:42 All systems: reviewed and no additional remarkable complaints except as stated Exam - Constitutional Vitals: Temp Pulse Resp BP Pulse Ox 98.0 F 92 16 107/63 93 06/23/17 11:10 06/23/17 11:10 06/23/17 11:10 06/23/17 11:10 06/23/17 11:10 General appearance: average body habitus, cooperative, no acute distress - Head Head exam: Present: atraumatic, normal inspection, normocephalic - Eye Eye exam: Present: EOMI, normal appearance, PERRL Pupils: Present: normal accommodation - ENT ENT exam: Present: mucous membranes moist - Neck Neck exam: Present: normal inspection - Respiratory Respiratory exam: Present: CTAB. Absent: rales, respiratory distress, rhonchi, wheezes - Cardiovascular Cardiovascular exam: Present: RRR, +S1, +S2 - GI/Abdominal GI/Abdominal exam: Present: normal bowel sounds, soft. Absent: distended, tenderness - Extremities Exam Extremities exam: Present: normal inspection. Absent: joint swelling, pedal edema, tenderness Additional comments: Psoriasis lesions noted to the bilateral knees. - Neurological Exam Neurological exam: Present: alert, oriented X3, no focal deficits - Psychiatric Psychiatric exam: Present: normal affect, normal mood - Skin Skin exam: Present: dry, intact, normal color, warm Infectious Disease CN: Results - Labs CBC & Chem 7: 06/23/17 04:53 06/22/17 08:39 Cultures: Cultures 06/22/17 08:30 Acid Fast Stain - Final Sputum 06/22/17 10:10 Legionella Antigen - Final Urine,Clean Catch Streptococcus pneumoniae Antigen (M - Final 06/22/17 08:30 Sputum Culture - Preliminary Sputum Serology: Serology 06/22/17 Range/Units 08:35 Chlamy pneumoniae PCR Not Detected (Not Detect) Adenovirus (PCR) Not Detected (Not Detect) B. pertussis DNA (PCR) Not Detected (Not Detect) B.parapertussis DNA PCR Not Detected (Not Detect) Coronavirus OC43 (PCR) Not Detected (Not Detect) Coronavirus HKU1 (PCR) Not Detected (Not Detect) Coronavirus 229E (PCR) Not Detected (Not Detect) Coronavirus NL63 (PCR) Not Detected (Not Detect) Human Metapneumovir PCR Not Detected (Not Detect) Influenza A (H1) PCR Not Detected (Not Detect) Influ A (H1N1/09) PCR Not Detected (Not Detect) Influenza A (H3) PCR Not Detected (Not Detect) Influenza A Untype (PCR) Not Detected (Not Detect) Influenza Type B (PCR) Not Detected (Not Detect) M.pneumoniae DNA (PCR) Not Detected (Not Detect) Parainfluenza 1 (PCR) Not Detected (Not Detect) Parainfluenza 2 (PCR) Not Detected (Not Detect) Parainfluenza 3 (PCR) Not Detected (Not Detect) Parainfluenza 4 (PCR) Not Detected (Not Detect) RSV (PCR) Not Detected (Not Detect) Entero/Rhino (PCR) Not Detected (Not Detect) Consult Discharge Plan - Plan Referrals: Ellen Ceron, [employer]ER[employer] ASSEMBLER [Primary Care Provider] - - Attending Attestation I examined this patient and my medical decision-making was reviewed with the Resident Physician. I agree with the documented findings, disposition and treatment plan as described except to the extent set forth below. This is an addendum to original report dictated by Bharti Nguyen CNP. Please refer to Emily note for full detail. Patient is 61-year-old gentleman with past medical history mentioned below who apparently started having symptoms about 4 weeks ago including cough and shortness of breath. Patient was diagnosed initially with bronchitis and was given a course of doxycycline. Patient states that the doxycycline did not improve his symptoms. He should seen the PCP again and had another course of levofloxacin and did not improve his symptoms. During that time patient tells me hes lost about 20 pounds. Patient tells me he has no appetite. Patient also tells me that he was somewhat nauseated. Patient denied any fevers or chills, no night sweats, no hemoptysis it. On further questioning patient has never traveled outside of the [facility]. 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 Patient was with his and a dog and has no TB exposure that he knows off. Since admission patient CT scan reveals a large consolidation with air-fluid level in the cavitation. There is also small cavitary lesion on the left side. Currently patient clinically does not appear toxic. And he is getting ready to go down to a bronchoscopy. His lungs actually dont sound as bad compared to the radiology findings. Rest of the physical exam is really unremarkable. At this point I am concerned for bacterial infection that is causing cavitation since the patients clinical picture has advanced quickly. I would to vancomycin , continue Levaquin and stop the Flagyl and start clindamycin. Patient has no teeth and he has no dentures any tells me that he chews on his gums. PPD was also placed. Await bronchoscopy and BAL. Please send for bacterial, anaerobic, fungal and AFB. Also would like Gram stain AFB stain and GMS stain. Patient will continue to be in airborne isolation on till the PPD is negative in 48 hours. I will also check HIV level just to be on the safe side. Index of suspicion for TB is lower on my differential. Monitor labs and for drug toxicity, goal vancomycin trough around 15.
--- NOTE | 2017-06-23 13:24 | Internal Med Progress Note ---
Date of Encounter: 06/23/17 Time of Encounter: 11:00 - Assessment and plan (1) Pneumonia Current Visit: Yes Status: Acute Assessment and plan: presented with cough for the last 10 days. Was recently diagnosed with the flu approx 5 weeks ago. Chest CTA with large right upper lobe cavitary pneumonia that has rapidly developed/worsened since 06/08/17 as well as large left upper lobe multifocal cavitary pneumonia however underlying mass cannot be excluded. No recent weight loss, no night sweats, no known exposure to TB. WBC 22K, lactic acid normal. Afebrile. No tachycardia or hypotension. Urinary antigens , respiratory PCR negative. Bronch pending. Continue IV Levaquin, Flagyl for now. Infectious disease and pulmonology following. Qualifiers: Pneumonia type: due to unspecified organism Laterality: right Lung location: upper lobe of lung Qualified Code(s): J18.1 - Lobar pneumonia, unspecified organism (2) Congestive heart failure with left ventricular systolic dysfunction Current Visit: No Status: Acute Assessment and plan: has AICD. 06/2017 TTE with EF 25-30% and severe global systolic dysfunction ( previous EF 10-15% 08/2015). Appears euvolemic. Continue home diuretics, BB, SHERYL (3) CAD (coronary artery disease) Current Visit: Yes Status: Acute Assessment and plan: hx PCI with stents. Asymptomatic, denied chest pain. Continue home ASA, Plavix , BB, statin. Qualifiers: Coronary Disease-Associated Artery/Lesion type: [place] artery [place] vs. transplanted heart: [place] heart Associated angina: without angina Qualified Code(s): I25.10 - Atherosclerotic heart disease of [place] coronary artery without angina pectoris (4) Diabetes Current Visit: No Status: Acute Assessment and plan: per hx. uncontrolled, Hgb A1c 11.7%. Blood sugar over 500 upon arrival. Received IV insulin in the ER. Holding home oral hypoglycemics. Cont home long acting. SSI. Blood sugars improved. Qualifiers: Diabetes mellitus type: type 2 Diabetes mellitus complication status: without complication Diabetes mellitus truck terminal manager insulin use: with intermediate use Qualified Code(s): E11.9 - Type 2 diabetes mellitus without complications ; Z79.4 - truck terminal manager (current) use of insulin (5) Hyponatremia Current Visit: Yes Status: Acute Assessment and plan: Suspect pseudohyponatremia secondary to hyperglycemia with Na 124 on arrival. Corrected sodium 136. Neurologically intact. Repeat sodium improving. (6) DVT prophylaxis Current Visit: No Status: Acute Assessment and plan: heparin - Subjective Interval history: Seen and examined at bedside; says he feels about the same. Uneventful night. Has a nonproductive cough. No fevers or chills. He is aware that bronchoscopy is planned for later on this afternoon. - Constitutional Vitals: Temp Pulse Resp BP Pulse Ox 98.0 F 92 16 107/63 93 06/23/17 11:10 06/23/17 11:10 06/23/17 11:10 06/23/17 11:10 06/23/17 11:10 General appearance: Present: A&O X 3, no acute distress, answers questions appropriately - Head Head exam: Present: atraumatic, normocephalic - Eye Eye exam: Present: PERRL, conjuntiva pink, sclera anicteric Pupils: Present: PERRL - Neck Neck exam general surgery: Present: supple, trachea midline. Absent: lymphadenopathy - Respiratory Respiratory exam: Present: CTAB. Absent: accessory muscle use, rales, rhonchi, wheezes - Cardiovascular Cardiovascular exam: Present: RRR, +S1, +S2. Absent: diastolic murmur, gallop, rubs, systolic murmur - GI/Abdominal GI/Abdominal exam: Present: normal bowel sounds, soft, no peritoneal signs. Absent: distended, tenderness - Extremities Exam Extremities exam: Present: warm, radial pulses palpable and symmetrical. Absent : calf tenderness, cyanotic, pedal edema - Neurological Exam Neurological exam: Present: CN II-XII intact, oriented X3, no focal deficits. Absent: pronater drift, facial droop, speech deficit - Skin Skin exam: Present: dry, intact Internal Medicine: Result - Labs CBC & Chem 7: 06/23/17 04:53 06/22/17 08:39 Labs: Short CBC 06/23/17 Range/Units 04:53 WBC 15.8 H (4.3-11.1) K/mcL Hgb 9.8 L (12.9-16.9) g/dL Hct 29.5 L (37.5-50.1) % Plt Count 386 (140-400) K/mcL Consult Discharge Plan - Plan Referrals: Ellen Ceron, CHARTER SCHOOL EXECUTIVE DIRECTOR [Primary Care Provider] -
[2017-06-23] MEDS ORDERED: Tuberculin Skin Test (PPD) 5 TUB/0.1 ML VIAL ID ONE (13:47)
[2017-06-23] MEDS ORDERED: *HR* Propofol 200 MG/20 ML VIAL IVP ONE (13:59)
[2017-06-23] MEDS ORDERED: *HR* Succinylcholine 200 MG/10 ML VIAL IVP ONE (13:59)
[2017-06-23] MEDS ORDERED: Lidocaine -MPF 2% 2 ML VIAL ONE (13:59)
[2017-06-23] MEDS ORDERED: Lidocaine -MPF 4% 5 ML AMPUL ONE (13:59)
[2017-06-23] MEDS ORDERED: *HR* Rocuronium Bromide 50 MG/5 ML VIAL ONE (13:59)
--- NOTE | 2017-06-23 14:58 | Anesthesia Evaluation Post Op ---
Date of Encounter: 06/23/17 Time of Encounter: 15:00 - Vital Signs Vital Signs: Vital Signs/O2 Sat/Glucose, Most Current Temp Pulse Resp BP Pulse Ox 06/23/17 14:52 97.6 F 97 18 111/68 99 06/23/17 14:42 97.6 F 106 18 115/59 99 06/23/17 14:37 97.6 F 109 18 93/59 99 06/23/17 13:47 98.7 F 91 18 125/75 99 06/23/17 11:10 98.0 F 92 16 107/63 93 - Lungs Lungs: Clear Ascult./Percussion - Airway Airway: Non-obstructed - Cardiovascular Regular Rate - Mental Status Mental Status: Alert & Oriented, Answers Appropriately - Pain Pain Scale: 0 - Nausea Vomiting Nausea Vomiting: Not Present - Hydration Hydration: NPO - Discharge PostOp Status: Transfer Patient to floor
[2017-06-23] MEDS: Clindamycin 600 MG/50 ML 600 MG/50 ML IV.SOLN IVPB SCH ×2 (15:30→23:50)
[2017-06-23] MEDS: Lactobacillus 1 EACH CAP.SPRINK PO SCH (15:30)
[2017-06-23] MEDS: Lisinopril 20 MG TABLET PO SCH (16:41)
[2017-06-23] MEDS: Levofloxacin 750 MG/150 ML 750 MG/150 ML BAG IVPB SCH (20:40)
[2017-06-23] MEDS: Insulin DETEMIR 100 UNIT/ML X5UNITS SQ SCH (20:45)
[2017-06-23] MEDS ORDERED: Acetaminophen 325 MG TABLET PO PRN (22:41)
[2017-06-23] MEDS ORDERED: 0.9 % Sodium Chloride 500 ML IVC ONE (22:44)
[2017-06-23] MEDS ORDERED: 0.9 % Sodium Chloride 500 ML ONE (22:49)
[2017-06-24] MEDS ORDERED: 0.9 % Sodium Chloride 500 ML ONE (00:34)
[2017-06-24] MEDS ORDERED: 0.9 % Sodium Chloride 500 ML IVC ONE ×2 (00:46→09:13)
[2017-06-24 04:27] LABS: Hematocrit 28.5 % (37.5-50.1); Hemoglobin 9.6 g/dL (12.9-16.9); Mean Corpuscular HGB Conc 33.7 g/dL (31.6-35.5); Mean Corpuscular Hemoglobin 27.5 pg (28.0-33.3); Mean Corpuscular Volume 81.7 fL (83.0-100.0); Mean Platelet Volume 9.6 fL (9.4-12.4); Platelet Count 412 K/mcL (140-400); Red Blood Count 3.49 M/mcL (4.19-5.50); Red Cell Distribution Width 13.5 % (11.5-14.5)
[2017-06-24 04:50] LABS: BUN/Creatinine Ratio 16 (6-26); Blood Urea Nitrogen 19 mg/dL (8-23); Calcium 7.7 mg/dL (8.6-10.3); Carbon Dioxide 24 mEq/L (23-29); Chloride 103 mEq/L (98-107); Glucose 167 mg/dL (70-105); Osmolality,Calculated 284 (280-300); Potassium 4.4 mEq/L (3.5-5.1); Sodium 134 mEq/L (136-145); eGFR For African Americans > 60 (> 60); eGFR For Non-African Americans > 60 (> 60)
[2017-06-24 05:02] LABS: Basophils % 0.1 %; Immature Granulocytes % 0.8 % (0-4); Lymphocytes # 1.3 K/mcL (0.6-4.6); Lymphocytes % 4.3 %; Monocytes # 1.8 K/mcL (0.0-1.3); Monocytes % 5.8 %
[2017-06-24] MEDS: *HR* Heparin 5,000 UNIT/ML VIAL SQ SCH ×2 (05:25→19:40)
[2017-06-24 05:34] LABS: Neutrophils # 27.2 K/mcL (1.6-8.9); Platelet Estimate Normal (Normal)
[2017-06-24] MEDS: Insulin LISPRO 300 UNITS/3 ML VIAL SQ SCH ×4 (07:57→21:14)
[2017-06-24] MEDS: Metoprolol XL (24 HR) Succ 25 MG TAB.ER.24H PO SCH ×2 (07:58→08:11)
[2017-06-24] MEDS: Aspirin 81 MG TAB.CHEW PO SCH (07:58)
[2017-06-24] MEDS: Clindamycin 600 MG/50 ML 600 MG/50 ML IV.SOLN IVPB SCH ×3 (07:58→23:34)
[2017-06-24] MEDS: Spironolactone 25 MG TABLET PO SCH ×2 (07:58→08:12)
[2017-06-24] MEDS: Lactobacillus 1 EACH CAP.SPRINK PO SCH (07:59)
[2017-06-24] MEDS: Furosemide 20 MG TABLET PO SCH (07:59)
[2017-06-24] MEDS ORDERED: Metoprolol XL (24 HR) Succ 25 MG TAB.ER.24H PO SCH (08:14)
[2017-06-24 09:38] LABS: Hemoglobin 10.3 g/dL (12.9-16.9)
[2017-06-24 09:41] LABS: Hematocrit 30.8 % (37.5-50.1); Immature Platelets 2.2 % (1.1-6.1); Mean Corpuscular HGB Conc 33.4 g/dL (31.6-35.5); Mean Corpuscular Hemoglobin 27.5 pg (28.0-33.3); Mean Corpuscular Volume 82.1 fL (83.0-100.0); Mean Platelet Volume 9.2 fL (9.4-12.4); Red Blood Count 3.75 M/mcL (4.19-5.50); Red Cell Distribution Width 13.6 % (11.5-14.5)
[2017-06-24] MEDS ORDERED: Vancomycin 1,250 MG in D5% in Water 250 ML IVPB ONE (10:00)
--- NOTE | 2017-06-24 13:59 | Pulmonology Progress Note ---
Date of Encounter: 06/24/17 Time of Encounter: 13:57 Assessment and Plan (1) Cavitary lesion of lung Current Visit: Yes Status: Acute This is consistent with lung abscess Does post bronchoscopy with worsening leukocytosis and overall evidence of worsening sepsis. This may have been worsened by inflammatory response post bronchoscopy yesterday Cultures thus far unremarkable. He is on broad-spectrum antimicrobials including Levaquin and clindamycin I would also add MRSA coverage with vancomycin or linezolid given jump in white count as resistance to clindamycin in the community he has been well documented (although somewhat encouragingly this has down trended at last check) Recommend repeated chest x-ray which shows possible new infiltrate in the right lower lobe this may have happened at the time of bronchoscopy for possible aspiration it is unclear the relevance at this time I did express to the attending nurse practitioner that patient high risk for worsening decompensation because of sepsis and with need close monitoring possibly moving patient to 2N or 2NE after checking lactic acid and considere giving a fluid challenge (0.5L crystalloid which can be repeated) I cautioned that he would have to monitor closely while doing so given underlying heart failure He will need prolonged antimicrobial therapy for her lung abscess course and trace of antimicrobial for monotherapy to be determined He is still in isolation for Mycobacterium tuberculosis which I feel is unwarranted however given there is only one negative AFB the results from the bronchial lavage and washing should give 2 samples and if negative then he can be taken off isolation for this. I called the [facility] and they said they are processing and at this time Appreciate the recommendation and expertise of the infectious disease service was also following this case (2) Congestive heart failure with left ventricular systolic dysfunction Current Visit: No Status: Acute Subjective Principal diagnosis: Lung Abcess Interval history: Suspect low-grade fever or overnight and was more tachycardic white count also elevated he denies any worse symptoms or from a breathing standpoint still having cough which is nonproductive denies hemoptysis Objective PUL Vital signs: Last Vital Signs Temp 98.5 F 06/24/17 12:28 Pulse 88 06/24/17 12:28 Resp 16 06/24/17 12:28 BP 103/66 06/24/17 12:28 Pulse Ox 94 06/24/17 12:28 General appearance: no acute distress ENT: oropharynx moist Auscultation: left: rhonchi, right: diminished breath sounds Cardiovascular: regular rate and rhythm Gastrointestinal: normoactive bowel sounds Extremities: no edema Musculoskeletal: no deformities normal mental status, non-focal exam Results - Laboratory Findings CBC and BMP: 06/24/17 09:29 06/24/17 03:56 Abnormal lab findings: Abnormal lab results WBC 25.5 K/mcL (4.3-11.1) H 06/24/17 09:29 RBC 3.75 M/mcL (4.19-5.50) L 06/24/17 09:29 Hgb 10.3 g/dL (12.9-16.9) L 06/24/17 09:29 Hct 30.8 % (37.5-50.1) L 06/24/17 09:29 MCV 82.1 fL (83.0-100.0) L 06/24/17 09:29 MCH 27.5 pg (28.0-33.3) L 06/24/17 09:29 Plt Count 477 K/mcL (140-400) H 06/24/17 09:29 MPV 9.2 fL (9.4-12.4) L 06/24/17 09:29 Neutrophils # 27.2 K/mcL (1.6-8.9) H 06/24/17 03:56 Monocytes # 1.8 K/mcL (0.0-1.3) H 06/24/17 03:56 Sodium 134 mEq/L (136-145) L 06/24/17 03:56 Glucose 167 mg/dL (70-105) H 06/24/17 03:56 POC Glucose 98 (58-89) H 06/24/17 07:22 Hemoglobin A1c 11.7 % (-5.6) H 06/22/17 08:39 Calcium 7.7 mg/dL (8.6-10.3) L 06/24/17 03:56 Magnesium 1.3 mg/dL (1.6-2.6) L 06/22/17 03:06 - Microbiology Findings Microbiology Findings: Microbiology, Last 48 Hours 06/23/17 14:46 Gram Stain - Final Left Upper Lobe Lung 06/23/17 14:46 Gram Stain - Final Right Upper Lobe Lung 06/22/17 08:30 Sputum Culture - Preliminary Sputum 06/22/17 08:30 Acid Fast Stain - Final Sputum 06/22/17 10:10 Legionella Antigen - Final Urine,Clean Catch Streptococcus pneumoniae Antigen (M - Final - Diagnostic Findings Chest x-ray: image reviewed - Clinical Findings Intake & Output: Intake & Output 06/23/17 06/24/17 06/24/17 23:59 07:59 15:59 Intake Total 200 / 200 50 / 50 240 / 240 Balance 200 / 200 50 / 50 240 / 240 Consult Discharge Plan - Plan Referrals: Ellen Ceron, CDA TEACHER [Primary Care Provider] -
--- NOTE | 2017-06-24 15:19 | Internal Med Progress Note ---
Date of Encounter: 06/24/17 Time of Encounter: 09:30 - Assessment and plan (1) Lung abscess Current Visit: Yes Status: Acute Assessment and plan: presented with cough for the last 10 days. Was recently diagnosed with the flu approx 5 weeks ago. Chest CTA with large right upper lobe cavitary pneumonia that has rapidly developed/worsened since 06/08/17 as well as large left upper lobe multifocal cavitary pneumonia however underlying mass cannot be excluded. No recent weight loss, no night sweats, no known exposure to TB. Urinary antigens, respiratory PCR negative. S/p bronch 06/23/17; BAL aerobic, anaerobic, fungal and AFB cultures pending. HIV negative. QuantiFERON pending. Can discontinue airborne isolation if PPD negative in 48 hours and/or second AFB negative. ATB regimen changed to clindamycin, Levaquin and vancomycin. Infectious disease and pulmonology following. Qualifiers: Pulmonary abscess pneumonia presence: with pneumonia Laterality: right Lung location: upper lobe of lung Qualified Code(s): J85.1 - Abscess of lung with pneumonia (2) Sepsis Current Visit: Yes Status: Acute Assessment and plan: With tachycardia, hypertension, WBC 22K. Secondary to multifocal cavitary pneumonia. WBC peaked at 30 K on 06/24; possibly secondary to bronchoscopy yesterday. Lactic acid normal. Blood cultures drawn 06/21/17 are NGTD 06/16 sets. Nonetheless, broaden ATB coverage by adding vancomycin. Received one time 500 mL IV bolus per pulmonology recommendations. Hold on 30 mL/kg fluid citation with history of CHF and low EF. BP remains soft/borderline but stable. Tachycardia resolved. Maintaining mentation. Transfer to higher level of care once negative pressure room becomes available. Qualifiers: Sepsis type: sepsis due to unspecified organism Qualified Code(s): A41.9 - Sepsis, unspecified organism (3) Congestive heart failure with left ventricular systolic dysfunction Current Visit: No Status: Acute Assessment and plan: has AICD. 06/2017 TTE with EF 25-30% and severe global systolic dysfunction ( previous EF 10-15% 08/2015). Appears euvolemic. Received 500 mL bolus on 06/24. Monitor fluid status. Cont home lasix; holding home spironolactone, SHERYL, BB with soft/borderline BP. (4) CAD (coronary artery disease) Current Visit: Yes Status: Acute Assessment and plan: hx PCI with stents. Asymptomatic, denied chest pain. Continue home ASA, Plavix , statin. Holding BB with soft/borderline BP Qualifiers: Coronary Disease-Associated Artery/Lesion type: [place] artery [place] vs. transplanted heart: [place] heart Associated angina: without angina Qualified Code(s): I25.10 - Atherosclerotic heart disease of [place] coronary artery without angina pectoris (5) Diabetes Current Visit: No Status: Acute Assessment and plan: per hx. uncontrolled, Hgb A1c 11.7%. Blood sugar over 500 upon arrival. Received IV insulin in the ER. Holding home oral hypoglycemics. Cont home long acting. Medium dose SSI. Blood sugars improved. Qualifiers: Diabetes mellitus type: type 2 Diabetes mellitus complication status: without complication Diabetes mellitus chcf insulin use: with intermediate project manager use Qualified Code(s): E11.9 - Type 2 diabetes mellitus without complications ; Z79.4 - long term care social worker (current) use of insulin; Z79.4 - long term care social worker (current) use of insulin; Z79.4 - correction (current) use of insulin; Z79.4 - correction ( current) use of insulin (6) Hyponatremia Current Visit: Yes Status: Acute Assessment and plan: Suspect pseudohyponatremia secondary to hyperglycemia with Na 124 and blood sugar over 500 on arrival. Corrected sodium 136. Neurologically intact. Repeat sodium improving. (7) DVT prophylaxis Current Visit: No Status: Acute Assessment and plan: heparin - Subjective Interval history: Seen and examined at bedside; laying in bed. Appears comfortable, he complains of cough otherwise he has no complaints. Of breath, no chest pain. - Constitutional Vitals: Temp Pulse Resp BP Pulse Ox 98.5 F 88 16 103/66 94 06/24/17 12:28 06/24/17 12:28 06/24/17 12:28 06/24/17 12:28 06/24/17 12:28 General appearance: Present: A&O X 3, no acute distress, answers questions appropriately - Head Head exam: Present: atraumatic, normocephalic - Eye Eye exam: Present: PERRL, conjuntiva pink, sclera anicteric Pupils: Present: PERRL - Neck Neck exam general surgery: Present: supple, trachea midline. Absent: lymphadenopathy - Respiratory Respiratory exam: Present: CTAB. Absent: accessory muscle use, rales, rhonchi, wheezes - Cardiovascular Cardiovascular exam: Present: RRR, +S1, +S2. Absent: diastolic murmur, gallop, rubs, systolic murmur - GI/Abdominal GI/Abdominal exam: Present: normal bowel sounds, soft, no peritoneal signs. Absent: distended, tenderness - Extremities Exam Extremities exam: Present: warm, radial pulses palpable and symmetrical. Absent : calf tenderness, cyanotic, pedal edema - Neurological Exam Neurological exam: Present: CN II-XII intact, oriented X3, no focal deficits. Absent: pronater drift, facial droop, speech deficit - Skin Skin exam: Present: dry, intact Internal Medicine: Result - Labs CBC & Chem 7: 06/24/17 09:29 06/24/17 03:56 Labs: Short CBC 06/24/17 06/24/17 Range/Units 03:56 09:29 WBC 30.6 H* D 25.5 H (4.3-11.1) K/mcL Hgb 9.6 L 10.3 L (12.9-16.9) g/dL Hct 28.5 L 30.8 L (37.5-50.1) % Plt Count 412 H 477 H (140-400) K/mcL Neutrophils # 27.2 H (1.6-8.9) K/mcL BMP 06/24/17 03:56 Sodium 134 L Potassium 4.4 Chloride 103 Carbon Dioxide 24 BUN 19 Creatinine 1.21 Glucose 167 H Calcium 7.7 L - Impressions Impressions Chest X-Ray 06/24/17 09:12 IMPRESSION: 1. Stable cavitary opacity in the right perihilar region measuring approximately 7.7 x 6.8 cm. 2. Interval appearance of ground-glass reticular opacities in the right base which may represent postobstructive changes, infection, or aspiration. 3. Patient's known left cavitary nodule is not seen on radiograph. D/ / 06/24/2017 13:20:10 Mary Guo MD / anastasiia Interpreting Provider: Mary Guo MD Consult Discharge Plan - Plan Referrals: Ellen Ceron, FORESTRY PATROLMAN [Primary Care Provider] -
[2017-06-24] MEDS: Levofloxacin 750 MG/150 ML 750 MG/150 ML BAG IVPB SCH (19:39)
[2017-06-24] MEDS: *HR* HYDROcodone/Acet 5/325 mg TABLET PO PRN (21:14)
[2017-06-24] MEDS: Insulin DETEMIR 100 UNIT/ML X5UNITS SQ SCH (21:15)
[2017-06-24] MEDS ORDERED: Vancomycin 1,000 MG in D5% in Water 250 ML IVPB SCH (22:00)
[2017-06-25] MEDS: *HR* HYDROcodone/Acet 5/325 mg TABLET PO PRN (04:53)
[2017-06-25] MEDS: *HR* Heparin 5,000 UNIT/ML VIAL SQ SCH ×2 (04:53→18:13)
[2017-06-25] MEDS: Aspirin 81 MG TAB.CHEW PO SCH (08:33)
[2017-06-25] MEDS: Clindamycin 600 MG/50 ML 600 MG/50 ML IV.SOLN IVPB SCH ×2 (08:33→16:32)
[2017-06-25] MEDS: Lactobacillus 1 EACH CAP.SPRINK PO SCH (08:33)
[2017-06-25] MEDS: Furosemide 20 MG TABLET PO SCH (08:33)
[2017-06-25] MEDS: Insulin LISPRO 300 UNITS/3 ML VIAL SQ SCH ×4 (08:34→22:02)
[2017-06-25 09:30] LABS: Hematocrit 30.3 % (37.5-50.1); Mean Corpuscular Hemoglobin 27.2 pg (28.0-33.3); Mean Corpuscular Volume 82.6 fL (83.0-100.0); Mean Platelet Volume 9.3 fL (9.4-12.4); Platelet Count 439 K/mcL (140-400); Red Blood Count 3.67 M/mcL (4.19-5.50); Red Cell Distribution Width 13.6 % (11.5-14.5)
[2017-06-25 09:46] LABS: BUN/Creatinine Ratio 17 (6-26); Blood Urea Nitrogen 15 mg/dL (8-23); Calcium 7.7 mg/dL (8.6-10.3); Carbon Dioxide 26 mEq/L (23-29); Chloride 104 mEq/L (98-107); Glucose 118 mg/dL (70-105); Osmolality,Calculated 286 (280-300); Potassium 4.2 mEq/L (3.5-5.1); Sodium 137 mEq/L (136-145); eGFR For African Americans > 60 (> 60); eGFR For Non-African Americans > 60 (> 60)
--- NOTE | 2017-06-25 10:13 | Internal Med Progress Note ---
Date of Encounter: 06/25/17 Time of Encounter: 10:11 - Assessment and plan (1) Lung abscess Current Visit: Yes Status: Acute Assessment and plan: presented with cough for the last 10 days. Was recently diagnosed with the flu approx 5 weeks ago. Chest CTA with large right upper lobe cavitary pneumonia that has rapidly developed/worsened since 06/08/17 as well as large left upper lobe multifocal cavitary pneumonia however underlying mass cannot be excluded. Urinary antigens, respiratory PCR negative. S/p bronch 06/23/17; BAL cultures grew group B strep, AFB negative 2. Discussed with pulmonology and de- escalate antibiotic regimen to clindamycin only. Duration of therapy is one month. Follow-up with pulmonology in approx 2 weeks. Likely discharge 06/26. Continue probiotic Qualifiers: Pulmonary abscess pneumonia presence: with pneumonia Laterality: right Lung location: upper lobe of lung Qualified Code(s): J85.1 - Abscess of lung with pneumonia (2) Sepsis Current Visit: Yes Status: Acute Assessment and plan: With tachycardia, hypertension, WBC 22K. Secondary to multifocal cavitary pneumonia. WBC peaked at 30 K on 06/24; possibly secondary to bronchoscopy yesterday. Lactic acid normal. Blood cultures drawn 06/21/17 are NGTD 06/16 sets. Nonetheless, broaden ATB coverage by adding vancomycin. Received one time 500 mL IV bolus per pulmonology recommendations. Hold on 30 mL/kg fluid citation with history of CHF and low EF. BP remains soft/borderline but stable. Tachycardia resolved. WBC trending down. Clinically improved, hemodynamically stable. Qualifiers: Sepsis type: sepsis due to unspecified organism Qualified Code(s): A41.9 - Sepsis, unspecified organism (3) Congestive heart failure with left ventricular systolic dysfunction Current Visit: No Status: Acute Assessment and plan: has AICD. 06/2017 TTE with EF 25-30% and severe global systolic dysfunction ( previous EF 10-15% 08/2015). Appears euvolemic. Received 500 mL bolus on 06/24. Monitor fluid status. Cont home lasix; holding home spironolactone, SHERYL, BB with soft/borderline BP. (4) CAD (coronary artery disease) Current Visit: Yes Status: Acute Assessment and plan: hx PCI with stents. Asymptomatic, denied chest pain. Continue home ASA, Plavix , statin. Holding BB with soft/borderline BP Qualifiers: Coronary Disease-Associated Artery/Lesion type: [place] artery [place] vs. transplanted heart: [place] heart Associated angina: without angina Qualified Code(s): I25.10 - Atherosclerotic heart disease of [place] coronary artery without angina pectoris (5) Diabetes Current Visit: No Status: Acute Assessment and plan: per hx. uncontrolled, Hgb A1c 11.7%. Blood sugar over 500 upon arrival. Received IV insulin in the ER. Holding home oral hypoglycemics. Cont home long acting. Medium dose SSI. Blood sugars improved. Qualifiers: Diabetes mellitus type: type 2 Diabetes mellitus complication status: without complication Diabetes mellitus retirement insulin use: with termite treater helper use Qualified Code(s): E11.9 - Type 2 diabetes mellitus without complications ; Z79.4 - watermelon harvesting supervisor (current) use of insulin; Z79.4 - watermelon harvesting supervisor (current) use of insulin; Z79.4 - shelter (current) use of insulin; Z79.4 - shelter ( current) use of insulin (6) Hyponatremia Current Visit: Yes Status: Acute Assessment and plan: Suspect pseudohyponatremia secondary to hyperglycemia with Na 124 and blood sugar over 500 on arrival. Corrected sodium 136. Neurologically intact. Repeat sodium improving. (7) DVT prophylaxis Current Visit: No Status: Acute Assessment and plan: heparin - Subjective Interval history: Seen and examined at bedside; says he feels about the same. Had an uneventful night. Still with nonproductive cough. No shortness of breath. - Constitutional Vitals: Temp Pulse Resp BP Pulse Ox 98.2 F 86 18 101/68 98 06/25/17 07:26 06/25/17 07:26 06/25/17 07:26 06/25/17 07:26 06/25/17 07:26 General appearance: Present: A&O X 3, no acute distress, answers questions appropriately - Head Head exam: Present: atraumatic, normocephalic - Eye Eye exam: Present: PERRL, conjuntiva pink, sclera anicteric Pupils: Present: PERRL - Neck Neck exam general surgery: Present: supple, trachea midline. Absent: lymphadenopathy - Respiratory Respiratory exam: Present: CTAB. Absent: accessory muscle use, rales, rhonchi, wheezes - Cardiovascular Cardiovascular exam: Present: RRR, +S1, +S2. Absent: diastolic murmur, gallop, rubs, systolic murmur - GI/Abdominal GI/Abdominal exam: Present: normal bowel sounds, soft, no peritoneal signs. Absent: distended, tenderness - Extremities Exam Extremities exam: Present: warm, radial pulses palpable and symmetrical. Absent : calf tenderness, cyanotic, pedal edema - Neurological Exam Neurological exam: Present: CN II-XII intact, oriented X3, no focal deficits. Absent: pronater drift, facial droop, speech deficit - Skin Skin exam: Present: dry, intact Internal Medicine: Result - Labs CBC & Chem 7: 06/25/17 09:15 06/25/17 09:15 Labs: Short CBC 06/25/17 Range/Units 09:15 WBC 22.4 H (4.3-11.1) K/mcL Hgb 10.0 L (12.9-16.9) g/dL Hct 30.3 L (37.5-50.1) % Plt Count 439 H (140-400) K/mcL BMP 06/25/17 09:15 Sodium 137 Potassium 4.2 Chloride 104 Carbon Dioxide 26 BUN 15 Creatinine 0.86 Glucose 118 H Calcium 7.7 L - Impressions Impressions Chest X-Ray 06/24/17 09:12 IMPRESSION: 1. Stable cavitary opacity in the right perihilar region measuring approximately 7.7 x 6.8 cm. 2. Interval appearance of ground-glass reticular opacities in the right base which may represent postobstructive changes, infection, or aspiration. 3. Patient's known left cavitary nodule is not seen on radiograph. D/ / 06/24/2017 13:20:10 Mary Guo MD / anastasiia Interpreting Provider: Mary Guo MD Consult Discharge Plan - Plan Referrals: Ellen Ceron, TRADEMARK ATTORNEY [Primary Care Provider] -
--- NOTE | 2017-06-25 12:01 | Pulmonology Progress Note ---
Date of Encounter: 06/25/17 Time of Encounter: 11:53 Assessment and Plan (1) Cavitary lesion of lung Current Visit: Yes Status: Acute Necrotizing pneumonia with Lung abscess secondary to Group B strep infection He will need at least 3 week antimicrobial treatment with repeat imaging at that time Choice of antimicrobials should include coverage for anaerobic organisms clindamycin would be a logical choice given penicillin allergy however there has been at least documented cases of clindamycin resistance to GBS and final sensitivity should be followed up to this and could also discuss with ID for final recommendations regarding treatment. Okay to stop vancomycin but would continue Levaquin at this time pending final speciation He will need pulmonary follow-up within 2-3 weeks the time of discharge patient should be given antimicrobials for 1 month's and plan to see him in clinic before then but if there is some delay he can continue to take these. Please call with any questions (2) Congestive heart failure with left ventricular systolic dysfunction Current Visit: No Status: Acute Subjective Principal diagnosis: Lung Abcess Interval history: He was transferred to the stepdown unit yesterday for closer monitoring given fever and overall sepsis-like picture. Encouragingly lactate was normal at count trending down his been essentially afebrile overnight feels generally well. Microbiology positive for group B strep negative for AFB Objective PUL Vital signs: Last Vital Signs Temp 98.2 F 06/25/17 07:26 Pulse 86 06/25/17 07:26 Resp 18 06/25/17 07:26 BP 101/68 06/25/17 07:26 Pulse Ox 98 06/25/17 07:26 General appearance: no acute distress Auscultation: bilateral: rhonchi Cardiovascular: regular rate and rhythm Extremities: no cyanosis, no edema, no clubbing normal mental status, non-focal exam mood appropriate Results - Laboratory Findings CBC and BMP: 06/25/17 09:15 06/25/17 09:15 Abnormal lab findings: Abnormal lab results WBC 22.4 K/mcL (4.3-11.1) H 06/25/17 09:15 RBC 3.67 M/mcL (4.19-5.50) L 06/25/17 09:15 Hgb 10.0 g/dL (12.9-16.9) L 06/25/17 09:15 Hct 30.3 % (37.5-50.1) L 06/25/17 09:15 MCV 82.6 fL (83.0-100.0) L 06/25/17 09:15 MCH 27.2 pg (28.0-33.3) L 06/25/17 09:15 Plt Count 439 K/mcL (140-400) H 06/25/17 09:15 MPV 9.3 fL (9.4-12.4) L 06/25/17 09:15 Neutrophils # 27.2 K/mcL (1.6-8.9) H 06/24/17 03:56 Monocytes # 1.8 K/mcL (0.0-1.3) H 06/24/17 03:56 Glucose 118 mg/dL (70-105) H 06/25/17 09:15 POC Glucose 398 (58-89) H 06/24/17 20:59 Hemoglobin A1c 11.7 % (-5.6) H 06/22/17 08:39 Calcium 7.7 mg/dL (8.6-10.3) L 06/25/17 09:15 Magnesium 1.3 mg/dL (1.6-2.6) L 06/22/17 03:06 - Microbiology Findings Microbiology Findings: Microbiology, Last 48 Hours 06/23/17 14:46 Acid Fast Stain - Final Left Upper Lobe Lung 06/23/17 14:46 Acid Fast Stain - Final Right Upper Lobe Lung 06/23/17 14:46 Gram Stain - Final Right Upper Lobe Lung Respiratory Culture - Preliminary Strep agalactiae - (Group B) 06/22/17 08:30 Sputum Culture - Final Sputum Strep agalactiae - (Group B) 06/23/17 14:46 Respiratory Culture - Final Left Upper Lobe Lung Strep agalactiae - (Group B) 06/23/17 14:46 Gram Stain - Final Left Upper Lobe Lung - Clinical Findings Intake & Output: Intake & Output 06/24/17 06/25/17 06/25/17 23:59 07:59 15:59 Intake Total 550 / 550 50 / 50 240 / 240 Output Total 650 / 650 475 / 475 275 / 275 Balance -100 / -100 -425 / -425 -35 / -35 Weight 75.75 kg Consult Discharge Plan - Plan Referrals: Ellen Ceron, SUCCESSFACTORS CONSULTANT [Primary Care Provider] -
[2017-06-25] MEDS: Vancomycin 1,250 MG in D5% in Water 250 ML IVPB SCH (13:38)
[2017-06-25] MEDS ORDERED: Levofloxacin 750 MG/150 ML 750 MG/150 ML BAG IVPB SCH (18:00)
[2017-06-25] MEDS: Insulin DETEMIR 100 UNIT/ML X5UNITS SQ SCH (22:01)
[2017-06-26] MEDS: Clindamycin 600 MG/50 ML 600 MG/50 ML IV.SOLN IVPB SCH ×3 (00:26→16:08)
[2017-06-26] MEDS: Vancomycin 1,250 MG in D5% in Water 250 ML IVPB SCH (01:31)
[2017-06-26] MEDS: *HR* Heparin 5,000 UNIT/ML VIAL SQ SCH ×2 (06:27→18:12)
[2017-06-26] MEDS: Lactobacillus 1 EACH CAP.SPRINK PO SCH (08:05)
[2017-06-26] MEDS: Insulin LISPRO 300 UNITS/3 ML VIAL SQ SCH ×4 (08:05→20:18)
[2017-06-26] MEDS: Aspirin 81 MG TAB.CHEW PO SCH (08:05)
[2017-06-26] MEDS: Furosemide 20 MG TABLET PO SCH (08:06)
[2017-06-26] MEDS ORDERED: Aminoglycoside Consult 1 EACH MC ONE (08:06)
[2017-06-26 08:55] LABS: Hematocrit 28.8 % (37.5-50.1); Hemoglobin 9.4 g/dL (12.9-16.9); Mean Corpuscular HGB Conc 32.6 g/dL (31.6-35.5); Mean Corpuscular Hemoglobin 26.7 pg (28.0-33.3); Mean Corpuscular Volume 81.8 fL (83.0-100.0); Mean Platelet Volume 9.5 fL (9.4-12.4); Platelet Count 439 K/mcL (140-400); Red Blood Count 3.52 M/mcL (4.19-5.50); Red Cell Distribution Width 13.6 % (11.5-14.5)
--- NOTE | 2017-06-26 10:15 | Discharge Summary ---
Date of Encounter: 06/26/17 Time of Encounter: 09:00 - Discharge Diagnosis (1) Lung abscess Status: Acute Comments: Necrotizing pneumonia with Lung abscess secondary to Group B strep infection Qualifiers: Pulmonary abscess pneumonia presence: with pneumonia Laterality: right Lung location: upper lobe of lung Qualified Code(s): J85.1 - Abscess of lung with pneumonia (2) Sepsis Status: Acute Qualifiers: Sepsis type: sepsis due to unspecified organism Qualified Code(s): A41.9 - Sepsis, unspecified organism (3) Congestive heart failure with left ventricular systolic dysfunction Status: Acute (4) CAD (coronary artery disease) Status: Acute Qualifiers: Coronary Disease-Associated Artery/Lesion type: [place] artery [place] vs. transplanted heart: [place] heart Associated angina: without angina Qualified Code(s): I25.10 - Atherosclerotic heart disease of [place] coronary artery without angina pectoris (5) Diabetes Status: Acute Qualifiers: Diabetes mellitus type: type 2 Diabetes mellitus complication status: without complication Diabetes mellitus long-term insulin use: with long-term use Qualified Code(s): E11.9 - Type 2 diabetes mellitus without complications ; Z79.4 - ferry terminal supervisor (current) use of insulin; Z79.4 - ferry terminal supervisor (current) use of insulin; Z79.4 - FDC (current) use of insulin; Z79.4 - ferry terminal supervisor ( current) use of insulin (6) Hyponatremia Status: Acute (7) DVT prophylaxis Status: Acute - Discharge Medications Home Medications: Aspirin 81 mg PO DAILY 01/27/16 [History] Calcium Carbonate [Calcium] 600 mg PO DAILY 01/27/16 [History] Ferrous Sulfate 325 mg PO DAILY 01/27/16 [History] Furosemide [Lasix] 20 mg PO DAILY 01/27/16 [History] Insulin ASPART [NovoLOG] 0 unit SQ BID 01/27/16 [History] Insulin Glargine,Hum.rec.anlog [Lantus Solostar] 66 unit SQ HS 01/27/16 [History ] Lisinopril [Zestril] 40 mg PO QPM 01/27/16 [History] Spironolactone [Aldactone] 25 mg PO DAILY 01/27/16 [History] metFORMIN [Glucophage] 850 mg PO TID 01/27/16 [History] Atorvastatin [Lipitor] 80 mg PO HS 30 Days tablet 01/30/16 [Rx] Metoprolol XL (24 HR) Succ [Toprol Xl] 25 mg PO DAILY #30 tab.er.24h 01/30/16 [ Rx] Clopidogrel [Plavix] 75 mg PO DAILY 06/21/17 [History] Cyclobenzaprine [Flexeril] 10 mg PO HS PRN 06/21/17 [History] HYDROcodone/Acet 5/325 mg [[place] 5-325 mg] 1 tab PO Q12H PRN 06/21/17 [History] Allergies/Adverse Reactions: 3 Allergy/AdvReac Type Severity Reaction Status Date / Time Penicillins AdvReac Rash Verified 06/21/17 16:42 Procedures/tests Complete & Pending: Procedures Performed prior 72 hours Category Date Time Status EKG [ECG 12 lead ECG] [ECG] Stat Y 06/23/17 22:39 Ordered Date of admission: 06/21/17 19:54 Primary care physician: Ellen Ceron CNP Consults: 06/22/17 09:32 Consult to Pulmonology [CONS] Routine Consulting Provider: [facility] [place] Reason for Consult: Cavitary pneumonia Call Completed: Yes 06/23/17 11:24 Consult to Infectious Diseases [CONS] Routine Consulting Provider: Infectious Disease [facility] Reason for Consult: pulm cavitary lesions Call Completed: Yes Discharging clinician: Roxana Cameron Anticipated date of discharge: 06/26/17 - Patient Status Condition: Fair - Discharge Instructions Follow Up With: Ellen Ceron CNP [Primary Care Provider] - Hospital course: Mr. Hopper is a 61 year old male - Time Spent with Patient Total time spent providing and/or coordinating discharge services: - Constitutional Vitals: Temp Pulse Resp BP Pulse Ox 99.3 F 98 18 112/71 95 06/26/17 07:57 06/26/17 07:57 06/26/17 07:57 06/26/17 07:57 06/26/17 07:57 General appearance: Present: A&O X 3, no acute distress, answers questions appropriately
--- NOTE | 2017-06-26 13:35 | Infectious Disease Progress No ---
Date of Encounter: 06/26/17 Time of Encounter: 13:32 - Assessment and Plan (1) Sepsis Current Visit: Yes Status: Acute The patient had two SIRS criteria on admission. He developed fever and tachycardia and worsening leukocytosis after his bronchoscopy. Likely secondary to pulmonary abscess. Improved. WBC trending down. Tachycardia persists. The patient has been afebrile x 48 hours. Blood cultures drawn 06/21/17 are negative 2/2 sets. Qualifiers: Sepsis type: sepsis due to unspecified organism Qualified Code(s): A41.9 - Sepsis, unspecified organism (2) Cavitary lesion of lung Current Visit: Yes Status: Acute Likely pulmonary abscess. The patient has no complaints of dental issues or aspiration. TB workup negative. CXR completed 06/21/17 showed increased mass-like opacity in the anterior right upper lobe with an internal air-fluid level concerning for cavitary pneumonia vs. abscess vs. malignancy. CTA of the chest was negative for PE, but did show a large consolidation in the right upper lobe with air fluid level and cavitation with additional lesions in the left lung. S. pneumo and legionella UAT negative. Sputum culture grew wolf-sensitive GBS. Pulmonology consulted and following. Status post bronchoscopy 06/23/[address] Mcdowell. Bronch report reviewed. Pus noted in the RUL. BAL positive for wolf- sensitive GBS. PPD negative. Check Quantiferon.--> pending. Check HIV status.-- negative. Continue Clindamycin 600mg IV Q8H. Will cover anaerobes and MRSA. Discontinue Levaquin. Discontinue Vancomycin. Continue probiotics. Duration of treatment depends on the clinical picture, but likely 2 weeks of IV antibiotics followed by orals for up to 3 months. Will plan on repeating CT scan after IV antibiotics are done prior to switching to PO antibiotics. Monitor renal function and dose-adjust antibiotics. Consult VAT for EPIV placement. Will need weekly CBC, BUN/Cr. Will need weekly EPIV care. Follow up with ID 2 weeks post-discharge. (3) Cough Current Visit: Yes Status: Acute Likely secondary to pulmonary abscess. Supportive care. Management per the primary and pulmonology teams. (4) CAD (coronary artery disease) Current Visit: Yes Status: Acute Status post cardiac stent placement x 2. Qualifiers: Coronary Disease-Associated Artery/Lesion type: [place] artery [place] vs. transplanted heart: [place] heart Associated angina: without angina Qualified Code(s): I25.10 - Atherosclerotic heart disease of [place] coronary artery without angina pectoris (5) Diabetes Current Visit: No Status: Acute Recommend aggressive glucose monitoring and control. Qualifiers: Diabetes mellitus type: type 2 Diabetes mellitus complication status: without complication Diabetes mellitus terminal block assembler insulin use: with terminal block assembler use Qualified Code(s): E11.9 - Type 2 diabetes mellitus without complications ; Z79.4 - retirement (current) use of insulin; Z79.4 - watermaster (current) use of insulin; Z79.4 - watermaster (current) use of insulin; Z79.4 - watermaster ( current) use of insulin (6) ICD (implantable cardioverter-defibrillator) in place Current Visit: No Status: Acute - Subjective Interval history: Patient seen and examined. No acute events noted overnight. Patient was transferred to due tachycardia and leukocytosis and concerns for worsening sepsis. Clinically, the patient appears stable. His only complaint is cough that is now productive of thick green sputum. He denies fevers, chills, or rigors. Denies chest pain, shortness of breath, or dyspnea on exertion. Denies aggravating/alleviating factors that effect the cough. Denies nausea, vomiting, diarrhea. Denies abdominal pain, appetite changes, or urinary complaints. Denies oral thrush or new skin lesions. Infect Dis PN-Objective Data - Labs CBC & Chem 7: 06/26/17 08:18 06/25/17 09:15 Labs: Laboratory Results - last 24 hr 06/25/17 06/25/17 06/25/17 07:29 11:50 16:09 WBC RBC Hgb Hct MCV MCH MCHC RDW Plt Count MPV POC Glucose 114 H 163 H 274 H 06/25/17 06/26/17 06/26/17 21:00 08:04 08:18 WBC 21.2 H RBC 3.52 L Hgb 9.4 L Hct 28.8 L MCV 81.8 L MCH 26.7 L MCHC 32.6 RDW 13.6 Plt Count 439 H MPV 9.5 POC Glucose 286 H 117 H Cultures: Cultures 06/23/17 14:46 Gram Stain - Final Right Upper Lobe Lung Respiratory Culture - Final Strep agalactiae - (Group B) 06/23/17 14:46 Acid Fast Stain - Final Left Upper Lobe Lung 06/23/17 14:46 Acid Fast Stain - Final Right Upper Lobe Lung 06/22/17 08:30 Sputum Culture - Final Sputum Strep agalactiae - (Group B) 06/23/17 14:46 Respiratory Culture - Final Left Upper Lobe Lung Strep agalactiae - (Group B) 06/23/17 14:46 Gram Stain - Final Left Upper Lobe Lung 06/22/17 08:30 Acid Fast Stain - Final Sputum 06/22/17 10:10 Legionella Antigen - Final Urine,Clean Catch Streptococcus pneumoniae Antigen (M - Final Serology 06/23/17 06/22/17 Range/Units 15:28 08:35 Chlamy pneumoniae PCR Not Detected (Not Detect) Adenovirus (PCR) Not Detected (Not Detect) B. pertussis DNA (PCR) Not Detected (Not Detect) B.parapertussis DNA PCR Not Detected (Not Detect) Coronavirus OC43 (PCR) Not Detected (Not Detect) Coronavirus HKU1 (PCR) Not Detected (Not Detect) Coronavirus 229E (PCR) Not Detected (Not Detect) Coronavirus NL63 (PCR) Not Detected (Not Detect) HIV Ag/Ab Combo Qual Nonreactive (Nonreactive) Human Metapneumovir PCR Not Detected (Not Detect) Influenza A (H1) PCR Not Detected (Not Detect) Influ A (H1N1/09) PCR Not Detected (Not Detect) Influenza A (H3) PCR Not Detected (Not Detect) Influenza A Untype (PCR) Not Detected (Not Detect) Influenza Type B (PCR) Not Detected (Not Detect) M.pneumoniae DNA (PCR) Not Detected (Not Detect) Parainfluenza 1 (PCR) Not Detected (Not Detect) Parainfluenza 2 (PCR) Not Detected (Not Detect) Parainfluenza 3 (PCR) Not Detected (Not Detect) Parainfluenza 4 (PCR) Not Detected (Not Detect) RSV (PCR) Not Detected (Not Detect) Entero/Rhino (PCR) Not Detected (Not Detect) Exam - Constitutional Vitals: Temp Pulse Resp BP Pulse Ox 99.8 F H 107 18 114/69 96 06/26/17 12:10 06/26/17 12:10 06/26/17 12:10 06/26/17 12:10 06/26/17 12:10 General appearance: average body habitus, cooperative, no acute distress - Head Head exam: Present: atraumatic, normal inspection, normocephalic - Eye Eye exam: Present: EOMI, normal appearance, PERRL Pupils: Present: normal accommodation - ENT ENT exam: Present: mucous membranes moist - Neck Neck exam: Present: normal inspection - Respiratory Respiratory exam: Present: CTAB. Absent: rales, respiratory distress, rhonchi, wheezes - Cardiovascular Cardiovascular exam: Present: +S1, +S2, tachycardia. Absent: irregular rhythm - GI/Abdominal GI/Abdominal exam: Present: normal bowel sounds, soft. Absent: distended, tenderness - Extremities Exam Extremities exam: Present: normal inspection. Absent: joint swelling, pedal edema, tenderness - Neurological Exam Neurological exam: Present: alert, oriented X3, no focal deficits - Psychiatric Psychiatric exam: Present: normal affect, normal mood - Skin Skin exam: Present: dry, intact, normal color, warm Consult Discharge Plan - Plan Referrals: Ellen Ceron, SENIOR PROJECT CONTROLS SPECIALIST [Primary Care Provider] - (SENT WEB REQUEST ON 06-26-17 @ [id number] ) - Attending Attestation I examined this patient and my medical decision-making was reviewed with the Resident Physician. I agree with the documented findings, disposition and treatment plan as described except to the extent set forth below.
--- NOTE | 2017-06-26 15:12 | Internal Med Progress Note ---
Date of Encounter: 06/26/17 Time of Encounter: 10:00 - Assessment and plan (1) Lung abscess Current Visit: Yes Status: Acute Assessment and plan: presented with cough for the last 10 days. Was recently diagnosed with the flu approx 5 weeks ago. Chest CTA with large right upper lobe cavitary pneumonia that has rapidly developed/worsened since 06/08/17 as well as large left upper lobe multifocal cavitary pneumonia however underlying mass cannot be excluded. Urinary antigens, respiratory PCR negative. S/p bronch 06/23/17; BAL cultures grew group B strep, AFB negative 2. Continue clindamycin, Levaquin. Discussed with infectious disease and may need IV ATB at discharge. Monitor WBC. Qualifiers: Pulmonary abscess pneumonia presence: with pneumonia Laterality: right Lung location: upper lobe of lung Qualified Code(s): J85.1 - Abscess of lung with pneumonia (2) Sepsis Current Visit: Yes Status: Acute Assessment and plan: With tachycardia, hypertension, WBC 22K. Secondary to multifocal cavitary pneumonia. WBC peaked at 30 K on 06/24; possibly secondary to bronchoscopy yesterday. Lactic acid normal. Blood cultures drawn 06/21/17 are NGTD 06/16 sets. Nonetheless, broaden ATB coverage by adding vancomycin. Received one time 500 mL IV bolus per pulmonology recommendations. Hold on 30 mL/kg fluid citation with history of CHF and low EF. BP remains soft/borderline but stable. Tachycardia resolved. WBC trending down. Clinically improved, hemodynamically stable. Qualifiers: Sepsis type: sepsis due to unspecified organism Qualified Code(s): A41.9 - Sepsis, unspecified organism (3) Congestive heart failure with left ventricular systolic dysfunction Current Visit: No Status: Acute Assessment and plan: has AICD. 06/2017 TTE with EF 25-30% and severe global systolic dysfunction ( previous EF 10-15% 08/2015). Appears euvolemic. Received 500 mL bolus on 06/24. Monitor fluid status. Cont home lasix; holding home spironolactone, SHERYL, BB with soft/borderline BP. (4) CAD (coronary artery disease) Current Visit: Yes Status: Acute Assessment and plan: hx PCI with stents. Asymptomatic, denied chest pain. Continue home ASA, Plavix , statin. Holding BB with soft/borderline BP Qualifiers: Coronary Disease-Associated Artery/Lesion type: [place] artery [place] vs. transplanted heart: [place] heart Associated angina: without angina Qualified Code(s): I25.10 - Atherosclerotic heart disease of [place] coronary artery without angina pectoris (5) Diabetes Current Visit: No Status: Acute Assessment and plan: per hx. uncontrolled, Hgb A1c 11.7%. Blood sugar over 500 upon arrival. Received IV insulin in the ER. Holding home oral hypoglycemics. Cont home long acting. Medium dose SSI. Blood sugars improved. Qualifiers: Diabetes mellitus type: type 2 Diabetes mellitus complication status: without complication Diabetes mellitus chcf insulin use: with intermodal customer service use Qualified Code(s): E11.9 - Type 2 diabetes mellitus without complications ; Z79.4 - exterminator termite (current) use of insulin; Z79.4 - exterminator termite (current) use of insulin; Z79.4 - exterminator termite (current) use of insulin; Z79.4 - MCC ( current) use of insulin (6) Hyponatremia Current Visit: Yes Status: Acute Assessment and plan: Suspect pseudohyponatremia secondary to hyperglycemia with Na 124 and blood sugar over 500 on arrival. Corrected sodium 136. Neurologically intact. Repeat sodium improving. (7) DVT prophylaxis Current Visit: No Status: Acute Assessment and plan: heparin - Subjective Interval history: Seen and examined at bedside; says he feels about the same. Had an uneventful night. Cough is now productive with copious amounts of sputum production. No shortness of breath. - Constitutional Vitals: Temp Pulse Resp BP Pulse Ox 99.8 F H 107 18 114/69 96 06/26/17 12:10 06/26/17 12:10 06/26/17 12:10 06/26/17 12:10 06/26/17 12:10 General appearance: Present: A&O X 3, no acute distress, answers questions appropriately - Head Head exam: Present: atraumatic, normocephalic - Eye Eye exam: Present: PERRL, conjuntiva pink, sclera anicteric Pupils: Present: PERRL - Neck Neck exam general surgery: Present: supple, trachea midline. Absent: lymphadenopathy - Respiratory Respiratory exam: Present: CTAB. Absent: accessory muscle use, rales, rhonchi, wheezes - Cardiovascular Cardiovascular exam: Present: RRR, +S1, +S2. Absent: diastolic murmur, gallop, rubs, systolic murmur - GI/Abdominal GI/Abdominal exam: Present: normal bowel sounds, soft, no peritoneal signs. Absent: distended, tenderness - Extremities Exam Extremities exam: Present: warm, radial pulses palpable and symmetrical. Absent : calf tenderness, cyanotic, pedal edema - Neurological Exam Neurological exam: Present: CN II-XII intact, oriented X3, no focal deficits. Absent: pronater drift, facial droop, speech deficit - Skin Skin exam: Present: dry, intact Internal Medicine: Result - Labs CBC & Chem 7: 06/26/17 08:18 06/25/17 09:15 Labs: Short CBC 06/26/17 Range/Units 08:18 WBC 21.2 H (4.3-11.1) K/mcL Hgb 9.4 L (12.9-16.9) g/dL Hct 28.8 L (37.5-50.1) % Plt Count 439 H (140-400) K/mcL Consult Discharge Plan - Plan Referrals: Ellen Ceron, ORACLE APPLICATIONS DEVELOPER [Primary Care Provider] - (SENT WEB REQUEST ON 06-26-17 @ [phone] )
[2017-06-26] MEDS: Insulin DETEMIR 100 UNIT/ML X5UNITS SQ SCH (20:17)
[2017-06-27] MEDS: Acetaminophen 325 MG TABLET PO PRN ×2 (00:11→20:32)
[2017-06-27] MEDS: Clindamycin 600 MG/50 ML 600 MG/50 ML IV.SOLN IVPB SCH ×4 (00:11→23:41)
[2017-06-27 03:17] LABS: Hematocrit 28.5 % (37.5-50.1); Hemoglobin 9.3 g/dL (12.9-16.9); Mean Corpuscular HGB Conc 32.6 g/dL (31.6-35.5); Mean Corpuscular Hemoglobin 26.8 pg (28.0-33.3); Mean Corpuscular Volume 82.1 fL (83.0-100.0); Mean Platelet Volume 9.3 fL (9.4-12.4); Platelet Count 395 K/mcL (140-400); Red Blood Count 3.47 M/mcL (4.19-5.50); Red Cell Distribution Width 13.5 % (11.5-14.5)
[2017-06-27] MEDS: *HR* Heparin 5,000 UNIT/ML VIAL SQ SCH ×2 (06:20→17:13)
[2017-06-27] MEDS: Furosemide 20 MG TABLET PO SCH (09:15)
[2017-06-27] MEDS: Lactobacillus 1 EACH CAP.SPRINK PO SCH (09:15)
[2017-06-27] MEDS: Aspirin 81 MG TAB.CHEW PO SCH (09:15)
[2017-06-27] MEDS: Insulin LISPRO 300 UNITS/3 ML VIAL SQ SCH ×4 (09:16→20:32)
--- NOTE | 2017-06-27 14:34 | Infectious Disease Progress No ---
Date of Encounter: 06/27/17 Time of Encounter: 14:31 - Assessment and Plan (1) Sepsis Current Visit: Yes Status: Acute The patient had two SIRS criteria on admission. He developed fever and tachycardia and worsening leukocytosis after his bronchoscopy. Likely secondary to pulmonary abscess. Improved. WBC trending down. Tachycardia resolved. The patient did spike a fever overnight. Repeat blood cultures not drawn. Blood cultures drawn 06/21/17 are negative 2/2 sets. Repeat blood cultures x 2 sets for fever > 100.4. Qualifiers: Sepsis type: sepsis due to unspecified organism Qualified Code(s): A41.9 - Sepsis, unspecified organism (2) Cavitary lesion of lung Current Visit: Yes Status: Acute Likely pulmonary abscess. The patient has no complaints of dental issues or aspiration. CXR completed 06/21/17 showed increased mass-like opacity in the anterior right upper lobe with an internal air-fluid level concerning for cavitary pneumonia vs. abscess vs. malignancy. CTA of the chest was negative for PE, but did show a large consolidation in the right upper lobe with air fluid level and cavitation with additional lesions in the left lung. S. pneumo and legionella UAT negative. Sputum culture grew wolf-sensitive GBS. Pulmonology consulted and following. Status post bronchoscopy 06/23/[address] Mcdowell. Bronch report reviewed. Pus noted in the RUL. BAL positive for wolf- sensitive GBS. PPD negative. Check Quantiferon.--> pending. Check HIV status.-- negative. Continue Clindamycin 600mg IV Q8H. Will cover anaerobes and MRSA. Continue probiotics. Duration of treatment depends on the clinical picture, but likely 2 weeks of IV antibiotics followed by orals for up to 3 months. Will plan on repeating CT scan after IV antibiotics are done prior to switching to PO antibiotics. Monitor renal function and dose-adjust antibiotics. Consult VAT for EPIV placement. Will need weekly CBC, BUN/Cr. Will need weekly EPIV care. Follow up with ID 2 weeks post-discharge. (3) Cough Current Visit: Yes Status: Acute Likely secondary to pulmonary abscess. Supportive care. Management per the primary and pulmonology teams. (4) CAD (coronary artery disease) Current Visit: Yes Status: Acute Status post cardiac stent placement x 2. Qualifiers: Coronary Disease-Associated Artery/Lesion type: [place] artery [place] vs. transplanted heart: [place] heart Associated angina: without angina Qualified Code(s): I25.10 - Atherosclerotic heart disease of [place] coronary artery without angina pectoris (5) Diabetes Current Visit: No Status: Acute Recommend aggressive glucose monitoring and control. Qualifiers: Diabetes mellitus type: type 2 Diabetes mellitus complication status: without complication Diabetes mellitus long term care phlebotomist insulin use: with long term care phlebotomist use Qualified Code(s): E11.9 - Type 2 diabetes mellitus without complications ; Z79.4 - detention (current) use of insulin; Z79.4 - termite renewal inspector (current) use of insulin; Z79.4 - termite renewal inspector (current) use of insulin; Z79.4 - termite renewal inspector ( current) use of insulin (6) ICD (implantable cardioverter-defibrillator) in place Current Visit: No Status: Acute - Subjective Interval history: Patient seen and examined. No acute events noted overnight. Patient was febrile overnight, but he denies chills or rigors. Denies chest pain, shortness of breath, or dyspnea on exertion. Reports cough seems better, but continues to be productive. Denies aggravating/alleviating factors that effect the cough. Denies nausea, vomiting, diarrhea. Denies abdominal pain, appetite changes, or urinary complaints. Denies oral thrush or new skin lesions. Infect Dis PN-Objective Data - Labs CBC & Chem 7: 06/27/17 03:02 06/25/17 09:15 Labs: Laboratory Results - last 24 hr 06/26/17 06/26/17 06/26/17 12:15 16:05 20:12 WBC RBC Hgb Hct MCV MCH MCHC RDW Plt Count MPV POC Glucose 149 H 288 H 395 H 06/27/17 06/27/17 03:02 07:18 WBC 14.4 H RBC 3.47 L Hgb 9.3 L Hct 28.5 L MCV 82.1 L MCH 26.8 L MCHC 32.6 RDW 13.5 Plt Count 395 MPV 9.3 L POC Glucose 60 Cultures: Cultures 06/23/17 14:46 Gram Stain - Final Right Upper Lobe Lung Respiratory Culture - Final Strep agalactiae - (Group B) 06/23/17 14:46 Acid Fast Stain - Final Left Upper Lobe Lung 06/23/17 14:46 Acid Fast Stain - Final Right Upper Lobe Lung 06/22/17 08:30 Sputum Culture - Final Sputum Strep agalactiae - (Group B) 06/23/17 14:46 Respiratory Culture - Final Left Upper Lobe Lung Strep agalactiae - (Group B) 06/23/17 14:46 Gram Stain - Final Left Upper Lobe Lung 06/22/17 08:30 Acid Fast Stain - Final Sputum 06/22/17 10:10 Legionella Antigen - Final Urine,Clean Catch Streptococcus pneumoniae Antigen (M - Final Serology 06/23/17 06/22/17 Range/Units 15:28 08:35 Chlamy pneumoniae PCR Not Detected (Not Detect) Adenovirus (PCR) Not Detected (Not Detect) B. pertussis DNA (PCR) Not Detected (Not Detect) B.parapertussis DNA PCR Not Detected (Not Detect) Coronavirus OC43 (PCR) Not Detected (Not Detect) Coronavirus HKU1 (PCR) Not Detected (Not Detect) Coronavirus 229E (PCR) Not Detected (Not Detect) Coronavirus NL63 (PCR) Not Detected (Not Detect) HIV Ag/Ab Combo Qual Nonreactive (Nonreactive) Human Metapneumovir PCR Not Detected (Not Detect) Influenza A (H1) PCR Not Detected (Not Detect) Influ A (H1N1/09) PCR Not Detected (Not Detect) Influenza A (H3) PCR Not Detected (Not Detect) Influenza A Untype (PCR) Not Detected (Not Detect) Influenza Type B (PCR) Not Detected (Not Detect) M.pneumoniae DNA (PCR) Not Detected (Not Detect) Parainfluenza 1 (PCR) Not Detected (Not Detect) Parainfluenza 2 (PCR) Not Detected (Not Detect) Parainfluenza 3 (PCR) Not Detected (Not Detect) Parainfluenza 4 (PCR) Not Detected (Not Detect) RSV (PCR) Not Detected (Not Detect) Entero/Rhino (PCR) Not Detected (Not Detect) Exam - Constitutional Vitals: Temp Pulse Resp BP Pulse Ox 98 F 87 16 119/79 96 06/27/17 12:00 06/27/17 12:00 06/27/17 12:00 06/27/17 12:00 06/27/17 12:00 General appearance: average body habitus, cooperative, no acute distress - Head Head exam: Present: atraumatic, normal inspection, normocephalic - Eye Eye exam: Present: EOMI, normal appearance, PERRL Pupils: Present: normal accommodation - ENT ENT exam: Present: mucous membranes moist - Neck Neck exam: Present: normal inspection - Respiratory Respiratory exam: Present: CTAB. Absent: rales, respiratory distress, rhonchi, wheezes - Cardiovascular Cardiovascular exam: Present: RRR, +S1, +S2 - GI/Abdominal GI/Abdominal exam: Present: normal bowel sounds, soft. Absent: distended, tenderness - Extremities Exam Extremities exam: Present: normal inspection. Absent: joint swelling, pedal edema, tenderness - Neurological Exam Neurological exam: Present: alert, oriented X3, no focal deficits - Psychiatric Psychiatric exam: Present: normal affect, normal mood - Skin Skin exam: Present: dry, intact, normal color, warm Consult Discharge Plan - Plan Referrals: Ellen Ceron CNP [Primary Care Provider] - 07/03/17 9:30 am () Bharti Nguyen CNP [Advanced Practice Nurse] - 07/11/17 9:00 am Prescriptions: Clindamycin 600 MG/50 ML [Cleocin Premix 600 MG/50 ML] 600 mg IV Q8HR 14 Days # 21 bag - Attending Attestation I examined this patient and my medical decision-making was reviewed with the Resident Physician. I agree with the documented findings, disposition and treatment plan as described except to the extent set forth below.
[2017-06-27 14:36] LABS: QuantiFERON NIL 0.04 IU/mL; QuantiFERON-TB Gold In-Tube INDETERMINATE (Negative)
--- NOTE | 2017-06-27 15:54 | Event Note ---
Date of Encounter: 06/27/17 Time of Encounter: 11:00 Patient ready for discharge but awaiting set up with home health care. Leukocytosis has greatly improved and patient has been afebrile on IV clindamycin. Infectious disease recommendations for patient to continue IV clindamycin for 2 weeks and then to switch to a by mouth antibiotic for approximately 3 months. Patient will follow up for repeat CT scan in 2 weeks and follow-up with infectious disease as an outpatient.
[2017-06-27] MEDS: Insulin DETEMIR 100 UNIT/ML X5UNITS SQ SCH (20:32)
[2017-06-28] MEDS: *HR* Heparin 5,000 UNIT/ML VIAL SQ SCH (06:49)
[2017-06-28 07:23] VITALS: BP 108/71
[2017-06-28] MEDS: Clindamycin 600 MG/50 ML 600 MG/50 ML IV.SOLN IVPB SCH (08:29)
[2017-06-28] MEDS: Lactobacillus 1 EACH CAP.SPRINK PO SCH (08:30)
[2017-06-28] MEDS: Aspirin 81 MG TAB.CHEW PO SCH (08:30)
[2017-06-28] MEDS: Insulin LISPRO 300 UNITS/3 ML VIAL SQ SCH (08:30)
[2017-06-28] MEDS: Furosemide 20 MG TABLET PO SCH (08:30)
--- NOTE | 2017-06-28 09:43 | Infectious Disease Progress No ---
Date of Encounter: 06/28/17 Time of Encounter: 09:41 - Assessment and Plan (1) Sepsis Current Visit: Yes Status: Acute The patient had two SIRS criteria on admission. He developed fever and tachycardia and worsening leukocytosis after his bronchoscopy. Likely secondary to pulmonary abscess. Improved. WBC trending down. Tachycardia resolved. Low-grade fever overnight. Blood cultures drawn 06/21/17 are negative 2/2 sets. Repeat blood cultures x 2 sets for fever > 100.4. Repeat CBC. Qualifiers: Sepsis type: sepsis due to unspecified organism Qualified Code(s): A41.9 - Sepsis, unspecified organism (2) Cavitary lesion of lung Current Visit: Yes Status: Acute Likely pulmonary abscess. The patient has no complaints of dental issues or aspiration. CXR completed 06/21/17 showed increased mass-like opacity in the anterior right upper lobe with an internal air-fluid level concerning for cavitary pneumonia vs. abscess vs. malignancy. CTA of the chest was negative for PE, but did show a large consolidation in the right upper lobe with air fluid level and cavitation with additional lesions in the left lung. S. pneumo and legionella UAT negative. Sputum culture grew wolf-sensitive GBS. Pulmonology consulted and following. Status post bronchoscopy 06/23/[address] Mcdowell. Bronch report reviewed. Pus noted in the RUL. BAL positive for wolf- sensitive GBS. PPD negative. Check Quantiferon.--> Indeterminate. Check HIV status.-- negative. Continue Clindamycin 600mg IV Q8H. Will cover anaerobes and MRSA. Continue probiotics. Duration of treatment depends on the clinical picture, but likely 2 weeks of IV antibiotics followed by orals for up to 3 months. Will plan on repeating CT scan after IV antibiotics are done prior to switching to PO antibiotics. Monitor renal function and dose-adjust antibiotics. Consult VAT for EPIV placement. Will need weekly CBC, BUN/Cr. Will need weekly EPIV care. Follow up with ID 2 weeks post-discharge. (3) Cough Current Visit: Yes Status: Acute Likely secondary to pulmonary abscess. Improved. Supportive care. Management per the primary and pulmonology teams. (4) CAD (coronary artery disease) Current Visit: Yes Status: Acute Status post cardiac stent placement x 2. Qualifiers: Coronary Disease-Associated Artery/Lesion type: [place] artery [place] vs. transplanted heart: [place] heart Associated angina: without angina Qualified Code(s): I25.10 - Atherosclerotic heart disease of [place] coronary artery without angina pectoris (5) Diabetes Current Visit: No Status: Acute Recommend aggressive glucose monitoring and control. Qualifiers: Diabetes mellitus type: type 2 Diabetes mellitus complication status: without complication Diabetes mellitus intermodal dispatcher insulin use: with senior living use Qualified Code(s): E11.9 - Type 2 diabetes mellitus without complications ; Z79.4 - local company intermodal truck driver (current) use of insulin; Z79.4 - care home (current) use of insulin; Z79.4 - local company intermodal truck driver (current) use of insulin; Z79.4 - care home ( current) use of insulin (6) ICD (implantable cardioverter-defibrillator) in place Current Visit: No Status: Acute - Subjective Interval history: Patient seen and examined. No acute events noted overnight. Denies fevers, chills or rigors. Denies chest pain, shortness of breath, or dyspnea on exertion. Reports cough seems better and is less productive. Denies aggravating/ alleviating factors that effect the cough. Denies nausea, vomiting, diarrhea. Denies abdominal pain, appetite changes, or urinary complaints. Denies oral thrush or new skin lesions. Infect Dis PN-Objective Data - Labs CBC & Chem 7: 06/27/17 03:02 06/25/17 09:15 Labs: Laboratory Results - last 24 hr 06/24/17 06/27/17 06/27/17 09:29 07:18 11:47 POC Glucose 60 192 H TB (QFT) Gold In Tube INDETERMINATE TB Test (QFT) Nil 0.04 TB Test Mitogen - Nil 0.30 06/27/17 06/27/17 16:03 20:32 POC Glucose 370 H 367 H TB (QFT) Gold In Tube TB Test (QFT) Nil TB Test Mitogen - Nil Cultures: Cultures 06/23/17 14:46 Gram Stain - Final Right Upper Lobe Lung Respiratory Culture - Final Strep agalactiae - (Group B) 06/23/17 14:46 Acid Fast Stain - Final Left Upper Lobe Lung 06/23/17 14:46 Acid Fast Stain - Final Right Upper Lobe Lung 06/22/17 08:30 Sputum Culture - Final Sputum Strep agalactiae - (Group B) 06/23/17 14:46 Respiratory Culture - Final Left Upper Lobe Lung Strep agalactiae - (Group B) 06/23/17 14:46 Gram Stain - Final Left Upper Lobe Lung 06/22/17 08:30 Acid Fast Stain - Final Sputum 06/22/17 10:10 Legionella Antigen - Final Urine,Clean Catch Streptococcus pneumoniae Antigen (M - Final Serology 06/24/17 06/23/17 06/22/17 Range/Units 09:29 15:28 08:35 Chlamy pneumoniae PCR Not Detected (Not Detect) Adenovirus (PCR) Not Detected (Not Detect) B. pertussis DNA (PCR) Not Detected (Not Detect) B.parapertussis DNA PCR Not Detected (Not Detect) Coronavirus OC43 (PCR) Not Detected (Not Detect) Coronavirus HKU1 (PCR) Not Detected (Not Detect) Coronavirus 229E (PCR) Not Detected (Not Detect) Coronavirus NL63 (PCR) Not Detected (Not Detect) HIV Ag/Ab Combo Qual Nonreactive (Nonreactive) Human Metapneumovir PCR Not Detected (Not Detect) Influenza A (H1) PCR Not Detected (Not Detect) Influ A (H1N1/09) PCR Not Detected (Not Detect) Influenza A (H3) PCR Not Detected (Not Detect) Influenza A Untype (PCR) Not Detected (Not Detect) Influenza Type B (PCR) Not Detected (Not Detect) M.pneumoniae DNA (PCR) Not Detected (Not Detect) Parainfluenza 1 (PCR) Not Detected (Not Detect) Parainfluenza 2 (PCR) Not Detected (Not Detect) Parainfluenza 3 (PCR) Not Detected (Not Detect) Parainfluenza 4 (PCR) Not Detected (Not Detect) RSV (PCR) Not Detected (Not Detect) Entero/Rhino (PCR) Not Detected (Not Detect) TB (QFT) Gold In Tube INDETERMINATE (Negative) TB Test (QFT) Nil 0.04 IU/mL TB Test Mitogen - Nil 0.30 IU/mL Exam - Constitutional Vitals: Temp Pulse Resp BP Pulse Ox 98.3 F 87 18 108/71 98 06/28/17 08:30 06/28/17 08:30 06/28/17 08:30 06/28/17 08:30 06/28/17 08:30 General appearance: average body habitus, cooperative, no acute distress - Head Head exam: Present: atraumatic, normal inspection, normocephalic - Eye Eye exam: Present: EOMI, normal appearance, PERRL Pupils: Present: normal accommodation - ENT ENT exam: Present: mucous membranes moist - Neck Neck exam: Present: normal inspection - Respiratory Respiratory exam: Present: CTAB. Absent: rales, respiratory distress, rhonchi, wheezes - Cardiovascular Cardiovascular exam: Present: RRR, +S1, +S2 - GI/Abdominal GI/Abdominal exam: Present: normal bowel sounds, soft. Absent: distended, tenderness - Extremities Exam Extremities exam: Present: normal inspection. Absent: joint swelling, pedal edema, tenderness - Neurological Exam Neurological exam: Present: alert, oriented X3, no focal deficits - Psychiatric Psychiatric exam: Present: normal affect, normal mood - Skin Skin exam: Present: dry, intact, normal color, warm Consult Discharge Plan - Plan Referrals: Bharti Nguyen CNP [Advanced Practice Nurse] - 07/11/17 9:00 am Ellen Ceron CNP [Primary Care Provider] - 07/03/17 9:30 am () Prescriptions: Clindamycin 600 MG/50 ML [Cleocin Premix 600 MG/50 ML] 600 mg IV Q8HR 14 Days # 21 bag
[2017-06-29 08:57] LABS: Source of Body Fluid LUL BAL
[2017-06-29 09:05] LABS: Appearance of Body Fluid Slightly Hazy (Clear); Volume of Body Fluid 14 mL
[2017-07-02 14:39] LABS: Influenza A PCR Body Fluid NOT DETECTED; Influenza B PCR Body Fluid NOT DETECTED; RVP Body Fluid Source BAL
[2017-07-02 14:39] LABS: Influenza A PCR Body Fluid NOT DETECTED; Influenza B PCR Body Fluid NOT DETECTED; RVP Body Fluid Source BAL
[2017-07-03 07:28] LABS: RSV PCR Body Fluid NOT DETECTED
[2017-07-03 07:28] LABS: RSV PCR Body Fluid NOT DETECTED
--- NOTE | 2017-07-04 10:25 | Physician Discharge Referral ---
- Respiratory Orders Smoking Cessation: Smoking cessation has been advised. For more information, call the [place] Tobacco Quit Line at 7-891-IHIX-NOW. - Services Needed Following services are medically necessary services: Nursing, Home Health Aide, Physical Therapy, Occupational Therapy - Transfer Medications Prescriptions: Clindamycin 600 MG/50 ML [Cleocin Premix 600 MG/50 ML] 600 mg IV Q8HR 14 Days # 21 bag Home Medications: Aspirin 81 mg PO DAILY 01/27/16 [History] Calcium Carbonate [Calcium] 600 mg PO DAILY 01/27/16 [History] Ferrous Sulfate 325 mg PO DAILY 01/27/16 [History] Furosemide [Lasix] 20 mg PO DAILY 01/27/16 [History] Insulin ASPART [NovoLOG] 0 unit SQ BID 01/27/16 [History] Insulin Glargine,Hum.rec.anlog [Lantus Solostar] 66 unit SQ HS 01/27/16 [History ] Lisinopril [Zestril] 40 mg PO QPM 01/27/16 [History] Spironolactone [Aldactone] 25 mg PO DAILY 01/27/16 [History] metFORMIN [Glucophage] 850 mg PO TID 01/27/16 [History] Atorvastatin [Lipitor] 80 mg PO HS 30 Days tablet 01/30/16 [Rx] Metoprolol XL (24 HR) Succ [Toprol Xl] 25 mg PO DAILY #30 tab.er.24h 01/30/16 [ Rx] Clopidogrel [Plavix] 75 mg PO DAILY 06/21/17 [History] Cyclobenzaprine [Flexeril] 10 mg PO HS PRN 06/21/17 [History] HYDROcodone/Acet 5/325 mg [[place] 5-325 mg] 1 tab PO Q12H PRN 06/21/17 [History] Clindamycin 600 MG/50 ML [Cleocin Premix 600 MG/50 ML] 600 mg IV Q8HR 14 Days # 21 bag 06/27/17 [Rx] Allergies/Adverse Reactions: 3 Allergy/AdvReac Type Severity Reaction Status Date / Time Penicillins AdvReac Rash Verified 06/21/17 16:42 Certification: Further, I certify that my clinical findings support that this patient is homebound (i.e. absences from home require considerable and taxing effort and are for medical reasons or orthodoxy services or infrequently or short duration when for other reasons) because: Homebound Reason: Patient requires assistance of a person or device to safely leave home Attestation: My signature below is to certify that this patient is under my care and that I, or nurse practitioner, or a physician's inventory assistant working with me, has a face-to -face encounter with this patient.
== END 2017-06-28 11:03 | disposition home health service (06) | DRG 853 ==
LOC: EMEROO 15:15 → 2ANU 15:15 → SUATTDRO 19:54 → 3BNU 19:59 → 2NNU 06-24 17:54
PROVIDERS: ADMIT Internal Medicine; ATTEND Hospitalist